=== PATIENT | male | born 1935 | race Caucasian/White ===

== ENCOUNTER 2017-06-14 13:10 | Inpatient (IN) | payer MEDICARE, OTHER ==
[~2017-06-14] VITALS: Ht 175.3 cm; Wt 83.5 kg
[2017-06-14] MEDS ORDERED: IOHEXOL 350 MG/ML 100ML IJ ONE ×2 (13:47→15:30)
[2017-06-14] MEDS ORDERED: LIDOCAINE 2%HCL (LOCAL ANESTH.) INJ 20ML MDV ONE ×3 (13:48→15:50)
[2017-06-14] MEDS ORDERED: HEPARIN IN NS 1000Units/500mL 0 ML ONE (13:48)
[2017-06-14 13:57] LABS: Hematocrit 46.6 % (41.0-53.0); Hemoglobin 15.8 g/dL (13.5-17.5); Mean Corpuscular Hemoglobin 31.8 pg (28.0-32.0); Mean Corpuscular Hgb Conc. 33.8 g/dL (32.0-36.0); Mean Corpuscular Volume 94.2 fL (80.0-100.0); Platelet Count (auto) 197 10^3/uL (140-450); Red Blood Cells 4.95 10^6/uL (4.5-5.90); Red Cell Distribution Width 13.7 % (11.8-14.3)
[2017-06-14 14:00] LABS: Urine Bacteria NONE SEEN /hpf (None Seen); Urine Blood Negative /uL (Negative); Urine Specific Gravity 1.022 (1.001-1.035); Urine WBC 1 /hpf (0 - 3)
[2017-06-14 14:03] LABS: Band Neutrophils % (manual) 0; Basophils % (manual) 0 (0.0-2.0); Eosinophils % (manual) 0 (0-7); Metamyelocytes % 0; Myelocytes % 0
[2017-06-14 14:04] LABS: Blast Cells 0; Promyelocytes % 0; Reactive Lymphocytes 0
[2017-06-14 14:10] LABS: INR 1.18 (0.9-1.15); Partial Thromboplastin Time 46.9 sec (22.64-33.71); Prothrombin Time 12.9 sec (9.37-12.3)
[2017-06-14 14:28] LABS: Albumin 3.4 g/dL (3.4-5.0); BUN/Creatinine Ratio 12.9; Calcium 8.5 mg/dL (8.5-10.1); Magnesium 2.3 mg/dL (1.6-2.6); Potassium 4.3 mmol/L (3.5-5.1); Total Protein 7.4 g/dL (6.4-8.2)
[2017-06-14] MEDS ORDERED: MORPHINE SULFATE 4 MG/ML SYR/VIAL IV PRN ×2 (15:15→17:00)
[2017-06-14] MEDS ORDERED: fentaNYL CITRATE 100 MCG/2 ML VL ONE (15:27)
[2017-06-14] MEDS ORDERED: ANGIOMAX 250 MG VIAL IV ONE ×2 (15:27→16:12)
[2017-06-14] MEDS ORDERED: MIDAZOLAM HCL 1MG/1ML-2 ML VIAL ONE (15:28)
[2017-06-14] MEDS ORDERED: SODIUM CHL 0.9% 50 ML ONE ×2 (15:28→16:12)
[2017-06-14 15:29] LABS: Lymphocytes % (manual) 6 (10.0-50.0); Monocytes % (manual) 4 (0-12)
[2017-06-14] MEDS ORDERED: HEPARIN DRIP/D5W 100UNITS/ML 250 ML IV SCH (16:49)
[2017-06-14] MEDS ORDERED: ONDANSETRON HCL 4 MG/2 ML VIAL IV PRN (17:00)
[2017-06-14] MEDS ORDERED: NITROGLYCERIN 0.4 MG SL TAB SL PRN (17:00)
[2017-06-14] MEDS ORDERED: HYDROcodone-ACET 10/325MG TAB ONE (17:21)
[2017-06-14] MEDS ORDERED: CYA100I IM (18:22)
[2017-06-14] MEDS ORDERED: FERR18TA2 PO (18:22)
[2017-06-14] MEDS ORDERED: HYDR-531 PO (18:22)
[2017-06-14] MEDS ORDERED: VITA400C49 PO (18:22)
[2017-06-14 19:50] VITALS: BP 111/62
[2017-06-14] MEDS ORDERED: CLOPIDOGREL 300 MG TAB PO ONE (21:00)
[2017-06-14] MEDS ORDERED: METOPROLOL TARTRATE 25 MG TAB PO SCH (22:00)
[2017-06-14] MEDS: FAMOTIDINE (10MG/ML) 2ML VL IV SCH (22:08)
[2017-06-14] MEDS: ALPRAZolam 0.25 MG TAB PO PRN (22:09)
[2017-06-14] MEDS: ATORVASTATIN 20 MG TAB PO SCH (22:09)
[2017-06-14] MEDS: METOPROLOL TARTRATE 25 MG TAB PO SCH (22:09)
[2017-06-14] MEDS: HYDROcodone-ACET 10/325MG TAB PO PRN (23:19)
[2017-06-14 23:51] VITALS: BP 97/58
[2017-06-15] VITALS (15 sets, daily range): BP systolic 85–108; BP diastolic 36–69
[2017-06-15 05:37] LABS: Basophils # (auto) 0 uL; Basophils % (auto) 0.2 % (0.0-2.0); Eosinophils # (auto) 0 uL; Eosinophils % (auto) 0.1 % (0.0-7.0); Hematocrit 42.8 % (41.0-53.0); Hemoglobin 14.6 g/dL (13.5-17.5); Lymphocytes # (auto) 0.8 uL; Lymphocytes % (auto) 6.1 % (10.0-50.0); Mean Corpuscular Hemoglobin 31.7 pg (28.0-32.0); Mean Corpuscular Hgb Conc. 34.1 g/dL (32.0-36.0); Mean Corpuscular Volume 92.7 fL (80.0-100.0); Monocytes # (auto) 1.3 uL; Monocytes % (auto) 9.4 % (0.0-12.0); Neutrophils # (auto) 11.4 uL; Neutrophils % (auto) 84.2 % (37.0-80.0); Nucleated Red Blood Cells % 0.6 %; Platelet Count (auto) 162 10^3/uL (140-450); Red Blood Cells 4.61 10^6/uL (4.5-5.90); Red Cell Distribution Width 13.4 % (11.8-14.3); White Blood Cell 13.6 10^3/uL (4.4-10.8)
[2017-06-15 05:38] LABS: INR 1.3 (0.9-1.15); Partial Thromboplastin Time 54.8 sec (22.64-33.71); Prothrombin Time 14.2 sec (9.37-12.3)
[2017-06-15 06:06] LABS: BUN/Creatinine Ratio 19.5; Calcium 8.4 mg/dL (8.5-10.1)
[2017-06-15] MEDS: FAMOTIDINE (10MG/ML) 2ML VL IV SCH (09:16)
[2017-06-15] MEDS: METOPROLOL TARTRATE 25 MG TAB PO SCH ×2 (09:16→22:00)
[2017-06-15] MEDS: CLOPIDOGREL BISULFATE 75 MG TAB PO SCH (09:16)
[2017-06-15] MEDS: LISINOPRIL 5 MG TAB PO SCH (09:17)
[2017-06-15] MEDS: HYDROcodone-ACET 10/325MG TAB PO PRN ×2 (09:17→22:44)
[2017-06-15] MEDS: ASPirin-EC 81 mg tab PO SCH (09:20)
[2017-06-15] MEDS: MORPHINE SULFATE 4 MG/ML SYR/VIAL IV PRN (12:53)
[2017-06-15] MEDS ORDERED: DIGOXIN (250MCG/ML) 2 ML AMPULE IV ONE ×2 (16:15→18:30)
[2017-06-15] MEDS ORDERED: AMIODARONE HCL 150 MG in D5W 5% 100 ML IV ONE (18:30)
[2017-06-15] MEDS ORDERED: AMIODARONE HCL 900 MG IV ONE (20:58)
[2017-06-15] MEDS ORDERED: AMIODARONE HCL (50 MG/ ML) 3 ML VIAL IV ONE (20:59)
[2017-06-15] MEDS: ATORVASTATIN 20 MG TAB PO SCH (22:44)
[2017-06-16] VITALS (30 sets, daily range): BP systolic 80–147; BP diastolic 32–74
[2017-06-16] MEDS ORDERED: AMIODARONE HCL 900 MG in DEXTROSE 500 ML IV SCH (00:29)
[2017-06-16] MEDS: ASPirin-EC 81 mg tab PO SCH (11:26)
[2017-06-16] MEDS: METOPROLOL TARTRATE 25 MG TAB PO SCH ×2 (11:39→22:04)
[2017-06-16] MEDS: LISINOPRIL 5 MG TAB PO SCH (11:40)
[2017-06-16] MEDS: DIGOXIN (250MCG/ML) 2 ML AMPULE IV SCH (11:42)
[2017-06-16] MEDS: CLOPIDOGREL BISULFATE 75 MG TAB PO SCH (11:42)
[2017-06-16] MEDS: HYDROcodone-ACET 10/325MG TAB PO PRN ×2 (11:42→20:05)
[2017-06-16] MEDS: MORPHINE SULFATE 4 MG/ML SYR/VIAL IV PRN (14:09)
[2017-06-16] MEDS: BUDESONIDE (INHALATION) 0.5 MG/2 ML NEB NEB SCH (18:19)
[2017-06-16] MEDS: IPRATROPIUM BROM 0.5 MG/2.5ML INH SOL NEB SCH ×2 (18:19→22:24)
[2017-06-16] MEDS ORDERED: AMIODARONE HCL 200 MG TAB PO ONE (20:00)
[2017-06-16] MEDS: ATORVASTATIN 20 MG TAB PO SCH (22:04)
[2017-06-17] VITALS: BP 101/68
[2017-06-17] MEDS: IPRATROPIUM BROM 0.5 MG/2.5ML INH SOL NEB SCH ×6 (02:36→22:38)
[2017-06-17 04:00] VITALS: BP 125/65
[2017-06-17] MEDS: BUDESONIDE (INHALATION) 0.5 MG/2 ML NEB NEB SCH ×2 (05:57→18:28)
[2017-06-17 06:01] LABS: Basophils # (auto) 0 uL; Basophils % (auto) 0.2 % (0.0-2.0); Eosinophils # (auto) 0 uL; Eosinophils % (auto) 0.4 % (0.0-7.0); Hematocrit 41.2 % (41.0-53.0); Hemoglobin 14.2 g/dL (13.5-17.5); Lymphocytes # (auto) 0.5 uL; Lymphocytes % (auto) 5.2 % (10.0-50.0); Mean Corpuscular Hemoglobin 31.9 pg (28.0-32.0); Mean Corpuscular Hgb Conc. 34.5 g/dL (32.0-36.0); Mean Corpuscular Volume 92.6 fL (80.0-100.0); Monocytes % (auto) 10.7 % (0.0-12.0); Neutrophils # (auto) 7.9 uL; Neutrophils % (auto) 83.5 % (37.0-80.0); Platelet Count (auto) 205 10^3/uL (140-450); Red Blood Cells 4.45 10^6/uL (4.5-5.90); Red Cell Distribution Width 13.3 % (11.8-14.3); White Blood Cell 9.5 10^3/uL (4.4-10.8)
[2017-06-17 06:36] LABS: Albumin 2.8 g/dL (3.4-5.0); BUN/Creatinine Ratio 27.6; Bilirubin, Total 1.4 mg/dL (0.2-1.0); Calcium 8.5 mg/dL (8.5-10.1); Potassium 4.3 mmol/L (3.5-5.1); Total Protein 7.1 g/dL (6.4-8.2)
[2017-06-17] MEDS: cefTRIAXone 1GM/10ml IVPUSH 10 ML IV SCH (08:33)
[2017-06-17] MEDS: DIGOXIN (250MCG/ML) 2 ML AMPULE IV SCH (09:03)
[2017-06-17] MEDS: AMIODARONE HCL 200 MG TAB PO SCH ×2 (09:03→22:20)
[2017-06-17] MEDS: CLOPIDOGREL BISULFATE 75 MG TAB PO SCH (09:04)
[2017-06-17] MEDS: HYDROcodone-ACET 10/325MG TAB PO PRN ×2 (09:04→19:44)
[2017-06-17] MEDS: LISINOPRIL 5 MG TAB PO SCH (09:04)
[2017-06-17] MEDS: ASPirin-EC 81 mg tab PO SCH (09:05)
[2017-06-17] MEDS: METOPROLOL TARTRATE 25 MG TAB PO SCH ×2 (09:05→22:00)
[2017-06-17 22:00] VITALS: BP 92/65
[2017-06-17] MEDS: ATORVASTATIN 20 MG TAB PO SCH (22:21)
[2017-06-17] MEDS: ALPRAZolam 0.25 MG TAB PO PRN (23:02)
[2017-06-18] MEDS: IPRATROPIUM BROM 0.5 MG/2.5ML INH SOL NEB SCH ×4 (02:38→14:41)
[2017-06-18 06:00] VITALS: BP 111/68
[2017-06-18] MEDS: BUDESONIDE (INHALATION) 0.5 MG/2 ML NEB NEB SCH (06:27)
[2017-06-18 06:45] LABS: Basophils # (auto) 0 uL; Basophils % (auto) 0.1 % (0.0-2.0); Eosinophils # (auto) 0.1 uL; Eosinophils % (auto) 0.8 % (0.0-7.0); Hematocrit 39.7 % (41.0-53.0); Hemoglobin 13.9 g/dL (13.5-17.5); Lymphocytes # (auto) 0.5 uL; Lymphocytes % (auto) 5.9 % (10.0-50.0); Mean Corpuscular Hemoglobin 32.4 pg (28.0-32.0); Mean Corpuscular Hgb Conc. 35.1 g/dL (32.0-36.0); Mean Corpuscular Volume 92.4 fL (80.0-100.0); Monocytes # (auto) 0.9 uL; Monocytes % (auto) 10.2 % (0.0-12.0); Neutrophils # (auto) 7.4 uL; Nucleated Red Blood Cells % 0.1 %; Platelet Count (auto) 215 10^3/uL (140-450); Red Cell Distribution Width 13.3 % (11.8-14.3); White Blood Cell 8.9 10^3/uL (4.4-10.8)
[2017-06-18 07:17] LABS: Albumin 2.7 g/dL (3.4-5.0); BUN/Creatinine Ratio 28.6; Bilirubin, Total 1.5 mg/dL (0.2-1.0); Calcium 8.5 mg/dL (8.5-10.1); Potassium 4.1 mmol/L (3.5-5.1)
[2017-06-18] MEDS: HYDROcodone-ACET 10/325MG TAB PO PRN (08:53)
[2017-06-18 09:22] VITALS: BP 94/60
[2017-06-18 10:00] VITALS: BP 86/57
[2017-06-18] MEDS: LISINOPRIL 5 MG TAB PO SCH (10:00)
[2017-06-18] MEDS: ASPirin-EC 81 mg tab PO SCH (10:00)
[2017-06-18] MEDS: METOPROLOL TARTRATE 25 MG TAB PO SCH (10:00)
[2017-06-18 10:02] VITALS: BP 106/62
[2017-06-18] MEDS: cefTRIAXone 1GM/10ml IVPUSH 10 ML IV SCH (10:15)
[2017-06-18] MEDS: DIGOXIN (250MCG/ML) 2 ML AMPULE IV SCH (10:16)
[2017-06-18] MEDS: AMIODARONE HCL 200 MG TAB PO SCH (10:17)
[2017-06-18] MEDS: CLOPIDOGREL BISULFATE 75 MG TAB PO SCH (10:17)
[2017-06-18 12:30] VITALS: BP 105/66
[2017-06-18 15:09] VITALS: BP 105/66
== END 2017-06-18 16:50 | disposition home or self-care (01) | DRG 280 ==
LOC: ER 13:10 → EDBD 13:10 → CATH 13:11 → ICU CENTRL 13:12 → DOU IN ICU 18:19 → TELE-WESTW 06-15 13:53 → DOU IN ICU 06-15 21:16 → TELE-WESTW 06-17 11:39
PROVIDERS: ADMIT Specialist; ATTEND Internal Medicine
PROC: 4A023N7 Measurement of Cardiac Sampling and Pressure, Left Heart, Percutaneous Approach (ICD-10-PCS; principal; 2017-06-14)
PROC: B2151ZZ Fluoroscopy of Left Heart using Low Osmolar Contrast (ICD-10-PCS; 2017-06-14)
PROC: B2111ZZ Fluoroscopy of Multiple Coronary Arteries using Low Osmolar Contrast (ICD-10-PCS; 2017-06-14)
PROC: B41F1ZZ Fluoroscopy of Right Lower Extremity Arteries using Low Osmolar Contrast (ICD-10-PCS; 2017-06-14)
DX: I21.09 ST elevation (STEMI) myocardial infarction involving other coronary artery of anterior wall (principal); J18.1 Lobar pneumonia, unspecified organism; E44.1 Mild protein-calorie malnutrition; I48.91 Unspecified atrial fibrillation; J44.0 Chronic obstructive pulmonary disease with (acute) lower respiratory infection; J20.9 Acute bronchitis, unspecified; F17.210 Nicotine dependence, cigarettes, uncomplicated; I10 Essential (primary) hypertension; G89.29 Other chronic pain; M54.9 Dorsalgia, unspecified; I25.10 Atherosclerotic heart disease of native coronary artery without angina pectoris; M19.90 Unspecified osteoarthritis, unspecified site; M48.00 Spinal stenosis, site unspecified; I25.5 Ischemic cardiomyopathy; Z68.27 Body mass index [BMI] 27.0-27.9, adult; Z88.6 Allergy status to analgesic agent; Z90.49 Acquired absence of other specified parts of digestive tract
CPT/HCPCS: 93458; 96361; 96374; 96375; 99285; G0278; 36415; 71045; 80048; 80053; 81001; 83735; 84484; 85007; 85025; 85027; 85610; 85730; 86850; 86900; 86901; 87081; 93005; 93306; 94640; 94761; 97163; 99152; J2250; J3490; J7060

== ENCOUNTER 2017-09-11 20:47 | Inpatient (IN) | payer OTHER ==
[~2017-09-11] VITALS: Ht 175.3 cm; Wt 80.9 kg
[~2017-09-11 20:47] MED LIST: CYA100I IM; FERR18TA2 PO; HYDR-531 PO; VITA400C49 PO
[2017-09-11 22:43] LABS: Basophils # (auto) 0 uL; Basophils % (auto) 0.3 % (0.0-2.0); Eosinophils # (auto) 0.1 uL; Eosinophils % (auto) 1.2 % (0.0-7.0); Hemoglobin 13.1 g/dL (13.5-17.5); Lymphocytes # (auto) 0.6 uL; Lymphocytes % (auto) 10.2 % (10.0-50.0); Mean Corpuscular Hemoglobin 29.8 pg (28.0-32.0); Mean Corpuscular Hgb Conc. 32.7 g/dL (32.0-36.0); Mean Corpuscular Volume 91.1 fL (80.0-100.0); Monocytes # (auto) 0.6 uL; Monocytes % (auto) 10.1 % (0.0-12.0); Neutrophils % (auto) 78.2 % (37.0-80.0); Platelet Count (auto) 208 10^3/uL (140-450); Red Blood Cells 4.39 10^6/uL (4.5-5.90); Red Cell Distribution Width 14.2 % (11.8-14.3); White Blood Cell 6.4 10^3/uL (4.4-10.8)
[2017-09-11 22:47] LABS: Albumin 3.5 g/dL (3.4-5.0); BUN/Creatinine Ratio 13.3; Bilirubin, Total 0.7 mg/dL (0.2-1.0); Calcium 8.4 mg/dL (8.5-10.1); Magnesium 2.4 mg/dL (1.6-2.6); Potassium 4.4 mmol/L (3.5-5.1); Total Protein 7.2 g/dL (6.4-8.2)
[2017-09-11 22:56] LABS: INR 1.24 (0.9-1.15); Partial Thromboplastin Time 44.6 sec (22.64-33.71); Prothrombin Time 13.6 sec (9.37-12.3)
[2017-09-12] MEDS ORDERED: FUROSEMIDE 20 MG/2 ML VIAL IV ONE
[2017-09-12] MEDS ORDERED: DOCUSATE SOD 100 MG CAP PO PRN (05:00)
[2017-09-12] MEDS ORDERED: TEMAZEPAM 15 MG CAP PO PRN (05:00)
[2017-09-12] MEDS ORDERED: MORPHINE SULFATE 4 MG/ML SYR/VIAL IV PRN (05:00)
[2017-09-12] MEDS ORDERED: NITROGLYCERIN 0.4 MG SL TAB SL PRN (05:00)
[2017-09-12] MEDS ORDERED: ONDANSETRON HCL 4 MG/2 ML VIAL IV PRN (05:00)
[2017-09-12] MEDS ORDERED: ALBUTEROL SULF 2.5 MG/0.5ML(0.5%) NEB SOLN NEB PRN (05:00)
[2017-09-12] MEDS ORDERED: HYDROcodone-ACET 5/325MG TAB PO PRN (05:00)
[2017-09-12] MEDS ORDERED: ACETAMINOPHEN 325 MG TAB PO PRN (05:00)
[2017-09-12] MEDS ORDERED: IOHEXOL 350 MG/ML 100ML IJ ONE ×2 (05:59→10:50)
[2017-09-12 06:00] VITALS: BP 151/94
[2017-09-12] MEDS ORDERED: LEVOFLOXACIN 500MG 100 ML IV ONE (06:00)
[2017-09-12] MEDS ORDERED: FUROSEMIDE 20 MG TAB PO SCH (06:00)
[2017-09-12] MEDS ORDERED: ENOXAPARIN SOD 100 MG/1 ML SYRINGE SC ONE (06:15)
[2017-09-12] MEDS ORDERED: ALPR0.5T PO (07:49)
[2017-09-12 07:55] LABS: INR 1.25 (0.9-1.15); Partial Thromboplastin Time 44.9 sec (22.64-33.71); Prothrombin Time 13.7 sec (9.37-12.3)
[2017-09-12 08:18] LABS: Albumin 3.2 g/dL (3.4-5.0); BUN/Creatinine Ratio 12.3; Calcium 8.3 mg/dL (8.5-10.1); Potassium 3.9 mmol/L (3.5-5.1)
[2017-09-12 08:21] LABS: Bilirubin, Total 0.8 mg/dL (0.2-1.0); Total Protein 6.7 g/dL (6.4-8.2)
[2017-09-12 09:00] VITALS: BP 140/85
[2017-09-12 09:05] VITALS: BP 140/85
[2017-09-12] MEDS: AMIODARONE HCL 200 MG TAB PO SCH ×2 (09:54→21:19)
[2017-09-12] MEDS: LISINOPRIL 10 MG TAB PO SCH (09:54)
[2017-09-12] MEDS: CLOPIDOGREL BISULFATE 75 MG TAB PO SCH (09:54)
[2017-09-12] MEDS ORDERED: DIGOXIN 0.125 MG TAB PO SCH (10:00)
[2017-09-12] MEDS ORDERED: POTASSIUM CHL 20 Meq TABLET PO SCH (10:00)
[2017-09-12] MEDS ORDERED: FUROSEMIDE 100 MG/10ML VIAL IV SCH (10:00)
[2017-09-12] MEDS ORDERED: CARVEDILOL 3.125 MG TAB PO SCH (10:00)
[2017-09-12] MEDS ORDERED: ENOXAPARIN SOD 40 MG/0.4 ML SYRINGE SC SCH ×2 (10:00→12:15)
[2017-09-12] MEDS ORDERED: FUROSEMIDE 100 MG/10ML VIAL IV ONE (10:15)
[2017-09-12] MEDS: CARVEDILOL 3.125 MG TAB PO SCH ×2 (12:16→21:20)
[2017-09-12] MEDS: FAMOTIDINE 20 MG TAB PO SCH ×2 (12:17→21:18)
[2017-09-12 13:00] VITALS: BP 156/79
[2017-09-12 17:00] VITALS: BP 127/81
[2017-09-12] MEDS ORDERED: WARFARIN SODIUM 5 MG TAB PO ONE (17:00)
[2017-09-12] MEDS ORDERED: MORPHINE SULFATE 8mg/ml INJ SDV IV PRN (17:45)
[2017-09-12] MEDS: FUROSEMIDE 100 MG/10ML VIAL IV SCH (18:07)
[2017-09-12] MEDS: RIVAROXABAN 15 MG TAB PO SCH (21:18)
[2017-09-12 21:36] VITALS: BP 107/73
[2017-09-12] MEDS ORDERED: ATORVASTATIN 20 MG TAB PO SCH (22:00)
[2017-09-12] MEDS ORDERED: PRAVASTATIN SODIUM 20 MG TAB PO SCH (22:00)
[2017-09-12] MEDS ORDERED: PATIENTS OWN MEDICATION PO SCH (22:00)
[2017-09-13 05:00] VITALS: BP 137/95
[2017-09-13] MEDS: FUROSEMIDE 100 MG/10ML VIAL IV SCH (05:31)
[2017-09-13 05:33] LABS: Basophils # (auto) 0 uL; Basophils % (auto) 0.4 % (0.0-2.0); Eosinophils # (auto) 0.1 uL; Eosinophils % (auto) 1.8 % (0.0-7.0); Hematocrit 40.3 % (41.0-53.0); Hemoglobin 13.6 g/dL (13.5-17.5); Lymphocytes # (auto) 0.8 uL; Lymphocytes % (auto) 13.2 % (10.0-50.0); Mean Corpuscular Hemoglobin 30.5 pg (28.0-32.0); Mean Corpuscular Hgb Conc. 33.8 g/dL (32.0-36.0); Mean Corpuscular Volume 90.2 fL (80.0-100.0); Monocytes # (auto) 0.8 uL; Neutrophils # (auto) 4.2 uL; Neutrophils % (auto) 71.6 % (37.0-80.0); Nucleated Red Blood Cells % 0.1 %; Platelet Count (auto) 189 10^3/uL (140-450); Red Blood Cells 4.47 10^6/uL (4.5-5.90); White Blood Cell 5.8 10^3/uL (4.4-10.8)
[2017-09-13 05:59] LABS: Albumin 3.5 g/dL (3.4-5.0); BUN/Creatinine Ratio 9.6; Bilirubin, Total 1.2 mg/dL (0.2-1.0); Calcium 8.9 mg/dL (8.5-10.1); Potassium 3.5 mmol/L (3.5-5.1)
[2017-09-13 09:00] VITALS: BP 118/73
[2017-09-13] MEDS: RIVAROXABAN 15 MG TAB PO SCH (09:31)
[2017-09-13] MEDS: FAMOTIDINE 20 MG TAB PO SCH (09:31)
[2017-09-13] MEDS: AMIODARONE HCL 200 MG TAB PO SCH (09:31)
[2017-09-13] MEDS: CLOPIDOGREL BISULFATE 75 MG TAB PO SCH (09:32)
[2017-09-13] MEDS: LISINOPRIL 10 MG TAB PO SCH (09:32)
[2017-09-13] MEDS: CARVEDILOL 3.125 MG TAB PO SCH (09:32)
[2017-09-13] MEDS ORDERED: LEVOFLOXACIN 500MG 100 ML IV SCH (10:00)
[2017-09-13] MEDS ORDERED: POTASSIUM CHL 20 Meq TABLET PO ONE (11:30)
[2017-09-13] MEDS ORDERED: ALBUTEROL SULF 2.5 MG/0.5ML(0.5%) NEB SOLN NEB PRN (11:30)
[2017-09-13 13:30] VITALS: BP 118/71
[2017-09-13 16:18] VITALS: BP 118/71
[2017-09-13 16:37] VITALS: BP 113/72
[2017-09-13] MEDS ORDERED: FUROSEMIDE 40 MG TAB PO SCH (18:00)
== END 2017-09-13 17:00 | disposition home or self-care (01) | DRG 291 ==
LOC: ER 20:47 → TELE 20:48 → TELE-WESTW 09-12 06:01
PROVIDERS: ADMIT Nurse Practitioner; ATTEND Internal Medicine
DX: I11.0 Hypertensive heart disease with heart failure (principal); I26.99 Other pulmonary embolism without acute cor pulmonale; D68.9 Coagulation defect, unspecified; I27.20 Pulmonary hypertension, unspecified; J43.9 Emphysema, unspecified; Z99.81 Dependence on supplemental oxygen; I24.8 Other forms of acute ischemic heart disease; I50.23 Acute on chronic systolic (congestive) heart failure; I48.0 Paroxysmal atrial fibrillation; I50.82 Biventricular heart failure; I25.10 Atherosclerotic heart disease of native coronary artery without angina pectoris; F17.210 Nicotine dependence, cigarettes, uncomplicated; I08.0 Rheumatic disorders of both mitral and aortic valves; M19.90 Unspecified osteoarthritis, unspecified site; G89.29 Other chronic pain; M54.9 Dorsalgia, unspecified; Z88.6 Allergy status to analgesic agent; I25.5 Ischemic cardiomyopathy; I25.2 Old myocardial infarction; Z79.01 Long term (current) use of anticoagulants; Z90.49 Acquired absence of other specified parts of digestive tract; Z79.899 Other long term (current) drug therapy
CPT/HCPCS: 36415; 71045; 71275; 80053; 83735; 83880; 84443; 84484; 85025; 85379; 85610; 85730; 93005; 93970; 94640; 96365; 96375; J1956

== ENCOUNTER 2017-09-26 12:04 | Inpatient (IN) | payer OTHER ==
[~2017-09-26] VITALS: Ht 175.3 cm; Wt 80.3 kg
[~2017-09-26 12:04] MED LIST changes: +ALPR0.5T PO
[2017-09-26] MEDS ORDERED: SODIUM CHLORIDE 0.9% 1,000 ML IV ONE (12:21)
[2017-09-26] MEDS ORDERED: IOHEXOL 300 MG/ML 100ML BOTTLE IJ ONE (12:24)
[2017-09-26] MEDS ORDERED: PANTOPRAZOLE 40 MG/10 ML VIAL IV ONE (12:30)
[2017-09-26 13:32] LABS: Basophils # (auto) 0 uL; Basophils % (auto) 0.2 % (0.0-2.0); Eosinophils # (auto) 0 uL; Eosinophils % (auto) 0.2 % (0.0-7.0); Hematocrit 31.1 % (41.0-53.0); Hemoglobin 10.1 g/dL (13.5-17.5); Lymphocytes # (auto) 0.7 uL; Lymphocytes % (auto) 4.2 % (10.0-50.0); Mean Corpuscular Hemoglobin 29.6 pg (28.0-32.0); Mean Corpuscular Hgb Conc. 32.6 g/dL (32.0-36.0); Mean Corpuscular Volume 90.7 fL (80.0-100.0); Monocytes # (auto) 0.8 uL; Monocytes % (auto) 4.9 % (0.0-12.0); Neutrophils # (auto) 15.1 uL; Neutrophils % (auto) 90.5 % (37.0-80.0); Nucleated Red Blood Cells % 0.1 %; Platelet Count (auto) 233 10^3/uL (140-450); Red Blood Cells 3.42 10^6/uL (4.5-5.90); Red Cell Distribution Width 14.1 % (11.8-14.3); White Blood Cell 16.6 10^3/uL (4.4-10.8)
[2017-09-26 13:47] LABS: Albumin 3.6 g/dL (3.4-5.0); BUN/Creatinine Ratio 19.7; Bilirubin, Total 1.1 mg/dL (0.2-1.0); Calcium 8.4 mg/dL (8.5-10.1); Potassium 4.3 mmol/L (3.5-5.1)
[2017-09-26 13:56] LABS: INR 2.31 (0.9-1.15); Prothrombin Time 23.6 sec (9.27-12.13)
[2017-09-26 14:02] LABS: Partial Thromboplastin Time 78.7 sec (23.78-33.04)
[2017-09-26 14:15] LABS: Urine Bacteria NONE SEEN /hpf (None Seen); Urine Blood Negative /uL (Negative); Urine Specific Gravity 1.011 (1.001-1.035); Urine WBC <1 /hpf (0 - 3)
[2017-09-26] MEDS ORDERED: metroNIDAZOLE 500MG/100ML 100 ML IV ONE (15:00)
[2017-09-26] MEDS ORDERED: PIPERACILLIN-TAZOB 3.375GM 100 ML IV ONE (15:00)
[2017-09-26] MEDS: PANTOPRAZOLE 40 MG/10 ML VIAL IV ONE ×2 (15:15→15:46)
[2017-09-26] MEDS ORDERED: cefTRIAXone 1GM/10ml IVPUSH 10 ML IV ONE (15:15)
[2017-09-26] MEDS ORDERED: MORPHINE SULFATE 10 MG/ML INJ 1ML SDV IV PRN ×2 (15:15)
[2017-09-26] MEDS ORDERED: LACTULOSE 20Gm/30ML SOLN PO PRN (15:15)
[2017-09-26] MEDS ORDERED: NITROGLYCERIN 0.4 MG SL TAB SL PRN (15:15)
[2017-09-26] MEDS ORDERED: PHYTONADIONE ORAL Susp 10 mg/10ml PO ONE ×2 (15:15)
[2017-09-26] MEDS ORDERED: LORazepam 0.5 MG TAB PO PRN (15:15)
[2017-09-26] MEDS ORDERED: TEMAZEPAM 15 MG CAP PO PRN (15:15)
[2017-09-26] MEDS ORDERED: metroNIDAZOLE 500MG/100ML 100 ML IV SCH (15:30)
[2017-09-26] MEDS: SODIUM CHLORIDE 0.9% 1,000 ML IV SCH ×2 (15:47→23:27)
[2017-09-26] MEDS: PROMETHAZINE HCL 25 MG/ML 1ML IV PRN (15:47)
[2017-09-26] MEDS: MORPHINE SULFATE 10 MG/ML INJ 1ML SDV IV PRN ×2 (15:47→20:09)
[2017-09-26 17:38] VITALS: BP 104/66
[2017-09-26 18:00] VITALS: BP 112/66
[2017-09-26 18:06] LABS: Hematocrit 28.6 % (41.0-53.0); Hemoglobin 9.4 g/dL (13.5-17.5)
[2017-09-26 19:30] VITALS: BP 119/78
[2017-09-26 20:14] LABS: INR 1.99 (0.9-1.15); Partial Thromboplastin Time 69.5 sec (23.78-33.04); Prothrombin Time 20.5 sec (9.27-12.13)
[2017-09-26] MEDS: metroNIDAZOLE 500MG/100ML 100 ML IV SCH (21:30)
[2017-09-26] MEDS: PANTOPRAZOLE 40 MG/10 ML VIAL IV SCH (22:00)
[2017-09-27 00:37] LABS: Hematocrit 23.1 % (41.0-53.0)
[2017-09-27 00:39] LABS: Hemoglobin 7.8 g/dL (13.5-17.5)
[2017-09-27 01:08] LABS: INR 1.68 (0.9-1.15); Partial Thromboplastin Time 60.9 sec (23.78-33.04); Prothrombin Time 17.5 sec (9.27-12.13)
[2017-09-27] MEDS ORDERED: SODIUM CHLORIDE 0.9% 1,000 ML IV SCH (04:45)
[2017-09-27] MEDS: metroNIDAZOLE 500MG/100ML 100 ML IV SCH (05:37)
[2017-09-27 06:37] LABS: Basophils # (auto) 0 uL; Basophils % (auto) 0.3 % (0.0-2.0); Eosinophils # (auto) 0.2 uL; Eosinophils % (auto) 2.2 % (0.0-7.0); Hematocrit 25.4 % (41.0-53.0); Lymphocytes % (auto) 14.4 % (10.0-50.0); Mean Corpuscular Hemoglobin 32.2 pg (28.0-32.0); Mean Corpuscular Hgb Conc. 35.3 g/dL (32.0-36.0); Mean Corpuscular Volume 91.1 fL (80.0-100.0); Monocytes # (auto) 0.7 uL; Neutrophils # (auto) 5.3 uL; Neutrophils % (auto) 73.1 % (37.0-80.0); Platelet Count (auto) 159 10^3/uL (140-450); Red Blood Cells 2.79 10^6/uL (4.5-5.90); Red Cell Distribution Width 14.2 % (11.8-14.3); White Blood Cell 7.2 10^3/uL (4.4-10.8)
[2017-09-27 06:42] LABS: INR 1.51 (0.9-1.15); Partial Thromboplastin Time 55.9 sec (23.78-33.04); Prothrombin Time 15.8 sec (9.27-12.13)
[2017-09-27 06:57] LABS: Potassium 3.8 mmol/L (3.5-5.1)
[2017-09-27 06:58] LABS: BUN/Creatinine Ratio 19.8
[2017-09-27 06:59] LABS: Albumin 2.8 g/dL (3.4-5.0); Bilirubin, Total 0.5 mg/dL (0.2-1.0); Calcium 7.9 mg/dL (8.5-10.1); Total Protein 5.7 g/dL (6.4-8.2)
[2017-09-27] MEDS: MORPHINE SULFATE 10 MG/ML INJ 1ML SDV IV PRN ×2 (07:29→20:54)
[2017-09-27] MEDS: PROMETHAZINE HCL 25 MG/ML 1ML IV PRN (07:29)
[2017-09-27] MEDS ORDERED: cefTRIAXone 1GM/10ml IVPUSH 10 ML IV SCH (09:00)
[2017-09-27] MEDS ORDERED: PANTOPRAZOLE 40 MG/10 ML VIAL IV SCH (10:00)
[2017-09-27] MEDS: PANTOPRAZOLE 40 MG/10 ML VIAL IV SCH ×2 (10:37→21:41)
[2017-09-27 17:00] VITALS: BP 106/56
[2017-09-27 20:00] VITALS: BP 122/72
[2017-09-27] MEDS ORDERED: MORPHINE SULF INJ 2 MG/ML SYRINGE 1ML ONE (20:38)
[2017-09-27] MEDS: SENNA 8.6 MG TAB PO SCH (21:41)
[2017-09-27 21:44] VITALS: BP 122/72
[2017-09-28] VITALS (7 sets, daily range): BP systolic 102–121; BP diastolic 64–78
[2017-09-28] MEDS ORDERED: CLOP75TA28 PO (02:28)
[2017-09-28] MEDS ORDERED: LISI-711 PO (02:28)
[2017-09-28] MEDS ORDERED: RIV15T PO (02:28)
[2017-09-28] MEDS ORDERED: CAR3125T PO (02:28)
[2017-09-28] MEDS ORDERED: POTA10TA51 PO (02:28)
[2017-09-28] MEDS ORDERED: LOVA10TA2 PO (02:28)
[2017-09-28] MEDS ORDERED: FURO40TA PO (02:28)
[2017-09-28 05:47] LABS: Basophils # (auto) 0 uL; Basophils % (auto) 0.2 % (0.0-2.0); Eosinophils # (auto) 0.2 uL; Eosinophils % (auto) 2.6 % (0.0-7.0); Hematocrit 26.1 % (41.0-53.0); Lymphocytes # (auto) 0.9 uL; Lymphocytes % (auto) 13.8 % (10.0-50.0); Mean Corpuscular Hemoglobin 31.2 pg (28.0-32.0); Mean Corpuscular Hgb Conc. 34.3 g/dL (32.0-36.0); Mean Corpuscular Volume 90.9 fL (80.0-100.0); Monocytes # (auto) 0.6 uL; Neutrophils # (auto) 5.1 uL; Neutrophils % (auto) 74.4 % (37.0-80.0); Platelet Count (auto) 165 10^3/uL (140-450); Red Blood Cells 2.88 10^6/uL (4.5-5.90); White Blood Cell 6.8 10^3/uL (4.4-10.8)
[2017-09-28] MEDS: HYDROcodone-ACET 5/325MG TAB PO PRN ×2 (08:33→20:12)
[2017-09-28] MEDS: PANTOPRAZOLE 40 MG/10 ML VIAL IV SCH ×2 (10:25→21:52)
[2017-09-28] MEDS: SENNA 8.6 MG TAB PO SCH (21:52)
[2017-09-29 05:00] VITALS: BP 136/74
[2017-09-29] MEDS: HYDROcodone-ACET 5/325MG TAB PO PRN (06:39)
[2017-09-29 07:24] LABS: Hematocrit 26.3 % (41.0-53.0); Hemoglobin 8.9 g/dL (13.5-17.5)
[2017-09-29 07:26] LABS: INR 1.26 (0.9-1.15); Partial Thromboplastin Time 44.8 sec (23.78-33.04); Prothrombin Time 13.3 sec (9.27-12.13)
[2017-09-29 08:00] VITALS: BP 124/75
[2017-09-29 08:52] VITALS: BP 124/75
[2017-09-29] MEDS: PANTOPRAZOLE 40 MG/10 ML VIAL IV SCH (10:44)
[2017-09-29] MEDS ORDERED: IOHEXOL 350 MG/ML 100ML IJ ONE (11:53)
[2017-09-29] MEDS ORDERED: LIDOCAINE 2%HCL (LOCAL ANESTH.) INJ 20ML MDV ONE (11:53)
[2017-09-29] MEDS ORDERED: fentaNYL CITRATE 100 MCG/2 ML VL ONE (12:32)
[2017-09-29] MEDS ORDERED: MIDAZOLAM HCL 1MG/1ML-2 ML VIAL ONE (12:33)
[2017-09-29 13:17] VITALS: BP 106/67
[2017-09-29 17:04] VITALS: BP 102/58
[2017-09-29 19:07] LABS: % Iron Saturation 8.6 % (20-55)
[2017-09-29 19:19] LABS: Folate (Folic Acid) 6.17 ng/mL (5.38-24)
[2017-09-29 20:04] VITALS: BP 102/58
[2017-09-30] MEDS ORDERED: SODIUM FERR GLUC 62.5MG/5ML 125 MG in SODIUM CHL 0.9% 100 ML IV SCH (12:00)
== END 2017-09-29 21:15 | disposition home or self-care (01) | DRG 854 ==
LOC: ER 12:04 → OVERFLOW 12:05 → TELE-WESTW 09-27 13:04
PROVIDERS: ADMIT Internal Medicine; ATTEND Internal Medicine
PROC: 30233L1 Transfusion of Nonautologous Fresh Plasma into Peripheral Vein, Percutaneous Approach (ICD-10-PCS; 2017-09-26)
PROC: 30233K1 Transfusion of Nonautologous Frozen Plasma into Peripheral Vein, Percutaneous Approach (ICD-10-PCS; 2017-09-26)
PROC: B5191ZZ Fluoroscopy of Inferior Vena Cava using Low Osmolar Contrast (ICD-10-PCS; principal; 2017-09-29)
PROC: 06H03DZ Insertion of Intraluminal Device into Inferior Vena Cava, Percutaneous Approach (ICD-10-PCS; 2017-09-29)
DX: A41.9 Sepsis, unspecified organism (principal); K62.5 Hemorrhage of anus and rectum; I48.91 Unspecified atrial fibrillation; I50.9 Heart failure, unspecified; J43.9 Emphysema, unspecified; D50.0 Iron deficiency anemia secondary to blood loss (chronic); F17.210 Nicotine dependence, cigarettes, uncomplicated; I25.10 Atherosclerotic heart disease of native coronary artery without angina pectoris; N30.90 Cystitis, unspecified without hematuria; T45.515A Adverse effect of anticoagulants, initial encounter; M19.90 Unspecified osteoarthritis, unspecified site; G89.29 Other chronic pain; M54.9 Dorsalgia, unspecified; I70.0 Atherosclerosis of aorta; Z96.642 Presence of left artificial hip joint; Z88.6 Allergy status to analgesic agent; Z79.01 Long term (current) use of anticoagulants; Z86.711 Personal history of pulmonary embolism; I25.2 Old myocardial infarction; Z95.5 Presence of coronary angioplasty implant and graft; Z90.49 Acquired absence of other specified parts of digestive tract; Z80.9 Family history of malignant neoplasm, unspecified; Y92.89 Other specified places as the place of occurrence of the external cause
CPT/HCPCS: 36415; 36430; 37619; 71045; 74177; 76942; 80053; 81001; 82378; 82607; 82728; 82746; 83090; 83540; 83550; 83605; 83880; 84484; 85014; 85018; 85025; 85045; 85610; 85652; 85730; 86850; 86870; 86900; 86901; 87040; 87081; 93005; 93970; 96361; 96374; 96375; 97163; 99152; C9113; G0378; J2250; J2543; J3490

== ENCOUNTER 2020-03-26 17:45 | Inpatient (IN) | payer OTHER ==
[~2020-03-26] VITALS: Ht 175.3 cm; Wt 70.3 kg
[~2020-03-26 17:45] MED LIST changes: +CAR3125T PO; +CHOL400L8 PO; +CLOP75TA28 PO; -CYA100I IM; +CYA100I PO; -FERR18TA2 PO; +FOLI1TAB6 PO; +FURO1TAB31 PO; +LISI-711 PO; +LOVA10TA2 PO; +POTA10TA51 PO; +RANITAB8 PO; -VITA400C49 PO
[2020-03-26] MEDS ORDERED: SODIUM CHLORIDE 0.9% 500 ML IV ONE (23:15)
[2020-03-26 23:29] LABS: INR 1.17 (0.9-1.15); Partial Thromboplastin Time 61.8 sec (23.0-31.2)
[2020-03-26 23:33] LABS: Albumin 2.9 g/dL (3.4-5.0); BUN/Creatinine Ratio 26.7; Calcium 8.6 mg/dL (8.5-10.1); Magnesium 2.1 mg/dL (1.6-2.6); Potassium 4.5 mmol/L (3.5-5.1)
[2020-03-26 23:48] LABS: Basophils # (auto) 0 10 ^3/uL (0-0.2); Basophils % (auto) 0.1 % (0.0-2.0); Eosinophils # (auto) 0 10 ^3/uL (0-0.8); Hematocrit 40.2 % (41.0-53.0); Hemoglobin 13.5 g/dL (13.5-17.5); Lymphocytes # (auto) 0.7 10 ^3/uL (0.4-5.4); Lymphocytes % (auto) 8.3 % (10.0-50.0); Mean Corpuscular Hemoglobin 30.8 pg (28.0-32.0); Mean Corpuscular Hgb Conc. 33.6 g/dL (32.0-36.0); Mean Corpuscular Volume 91.8 fL (80.0-100.0); Monocytes # (auto) 0.5 10 ^3/uL (0-1.3); Neutrophils # (auto) 7.6 10 ^3/uL (1.6-8.6); Neutrophils % (auto) 85.6 % (37.0-80.0); Nucleated Red Blood Cells % 0.1 %; Platelet Count (auto) 95 10^3/uL (140-450); Red Blood Cells 4.39 10^6/uL (4.5-5.90); Red Cell Distribution Width 14.5 % (11.8-14.3); White Blood Cell 8.8 10^3/uL (4.4-10.8)
[2020-03-26 23:50] LABS: Bilirubin, Total 1.1 mg/dL (0.2-1.0); Total Protein 6.8 g/dL (6.4-8.2)
[2020-03-26 23:51] LABS: Lactic Acid w/Reflex 2.4 mmol/L (0.4-2.0)
[2020-03-27] MEDS ORDERED: IOHEXOL 350 MG/ML 100ML IJ ONE (00:59)
[2020-03-27] MEDS ORDERED: PIPERACILLIN-TAZOB 3.375GM 100 ML IV ONE (01:00)
[2020-03-27] MEDS ORDERED: SODIUM CHLORIDE 0.9% 500 ML IV ONE (01:00)
[2020-03-27] MEDS ORDERED: VANCOMYCIN 1GM/250ML 250 ML IV ONE ×2 (01:00→17:00)
[2020-03-27] MEDS ORDERED: SODIUM CHLORIDE 0.9% 1,000 ML IV ONE (02:15)
[2020-03-27] MEDS ORDERED: SODIUM CHLORIDE 0.9% 1,000 ML IV SCH (02:45)
[2020-03-27] MEDS ORDERED: DOCUSATE SOD 100 MG CAP PO PRN (02:45)
[2020-03-27] MEDS ORDERED: ONDANSETRON HCL 4 MG/2 ML VIAL IV PRN (02:45)
[2020-03-27] MEDS ORDERED: ACETAMINOPHEN 500 MG TAB PO PRN (02:45)
[2020-03-27] MEDS ORDERED: MORPHINE SULF INJ 2 MG/ML SYRINGE 1ML IV PRN (02:45)
[2020-03-27] MEDS ORDERED: NITROGLYCERIN 0.4 MG SL TAB SL PRN (02:45)
[2020-03-27] MEDS ORDERED: IPRATROPIUM BROM 0.5 MG/2.5ML INH SOL NEB PRN (03:00)
[2020-03-27] MEDS: ALBUTEROL SULF HFA 90MCG INH 200DOSE IN SCH ×3 (06:38→22:11)
--- NOTE | 2020-03-27 06:39 | NUR ---
RT NOTE: MDI HELD PENDING COVID-19 TEST RESULTS.
[2020-03-27] MEDS: NOREPINEPHRINE 8 MG/250ML KIT 250 ML IV SCH (08:21)
[2020-03-27] MEDS: ENOXAPARIN SOD 40 MG/0.4 ML SYRINGE SC SCH (09:53)
[2020-03-27] MEDS: ASCORBIC ACID 1,000 MG TAB PO SCH (09:53)
[2020-03-27] MEDS ORDERED: ZINC SULFATE 220mg CAP or TAB PO SCH (10:00)
[2020-03-27] MEDS ORDERED: DOXYCYCLINE 100 MG TAB/CAP PO SCH (10:00)
[2020-03-27] MEDS ORDERED: FAMO20TA10 PO (11:20)
[2020-03-27] MEDS ORDERED: ALB5IS NEB (11:21)
[2020-03-27] MEDS ORDERED: IPRA0.03 (11:22)
[2020-03-27 11:29] LABS: Basophils # (auto) 0 10 ^3/uL (0-0.2); Basophils % (auto) 0.1 % (0.0-2.0); Eosinophils # (auto) 0 10 ^3/uL (0-0.8); Hemoglobin 10.7 g/dL (13.5-17.5); Lymphocytes # (auto) 0.6 10 ^3/uL (0.4-5.4); Lymphocytes % (auto) 15.2 % (10.0-50.0); Mean Corpuscular Hemoglobin 30.7 pg (28.0-32.0); Mean Corpuscular Hgb Conc. 33.4 g/dL (32.0-36.0); Mean Corpuscular Volume 91.9 fL (80.0-100.0); Monocytes # (auto) 0.3 10 ^3/uL (0-1.3); Monocytes % (auto) 6.6 % (0.0-12.0); Neutrophils % (auto) 78.1 % (37.0-80.0); Platelet Count (auto) 72 10^3/uL (140-450); Red Blood Cells 3.48 10^6/uL (4.5-5.90); Red Cell Distribution Width 14.6 % (11.8-14.3); White Blood Cell 3.9 10^3/uL (4.4-10.8)
[2020-03-27] MEDS: SODIUM CHLORIDE 0.9% 1,000 ML IV SCH ×2 (12:00→22:00)
[2020-03-27] MEDS ORDERED: ALPRAZolam 0.5 MG TAB PO PRN (12:00)
[2020-03-27] MEDS ORDERED: VANCOMYCIN PER PHARMACY 0 MG IV SCH (12:00)
[2020-03-27 12:10] LABS: Albumin 2.2 g/dL (3.4-5.0); Calcium 7.4 mg/dL (8.5-10.1); Potassium 3.6 mmol/L (3.5-5.1)
[2020-03-27 12:15] LABS: BUN/Creatinine Ratio 32.3; Bilirubin, Total 0.6 mg/dL (0.2-1.0); Total Protein 5.2 g/dL (6.4-8.2)
[2020-03-27 12:56] VITALS: BP 93/56
[2020-03-27] MEDS: methylPREDNISolone SOD SUCC 40 MG/ML VL IV SCH ×2 (13:20→22:11)
[2020-03-27] MEDS: FOLIC ACID 1 MG TAB PO SCH (13:20)
[2020-03-27] MEDS: PANTOPRAZOLE 40 MG TAB PO SCH (13:20)
[2020-03-27] MEDS: MEROPENEM 1GM IVPB 100 ML IV SCH ×2 (14:10→22:11)
[2020-03-27] MEDS: ATORVASTATIN 20 MG TAB PO SCH (22:10)
[2020-03-28] MEDS ORDERED: HYDROcodone-ACET 10/325MG TAB PO ONE (02:45)
[2020-03-28] MEDS: MEROPENEM 1GM IVPB 100 ML IV SCH ×3 (05:27→22:27)
[2020-03-28 06:16] LABS: Basophils # (auto) 0 10 ^3/uL (0-0.2); Eosinophils # (auto) 0 10 ^3/uL (0-0.8); Hematocrit 33.8 % (41.0-53.0); Hemoglobin 11.3 g/dL (13.5-17.5); Lymphocytes # (auto) 0.3 10 ^3/uL (0.4-5.4); Lymphocytes % (auto) 9.3 % (10.0-50.0); Mean Corpuscular Hemoglobin 30.7 pg (28.0-32.0); Mean Corpuscular Hgb Conc. 33.5 g/dL (32.0-36.0); Mean Corpuscular Volume 91.8 fL (80.0-100.0); Monocytes # (auto) 0.2 10 ^3/uL (0-1.3); Monocytes % (auto) 4.5 % (0.0-12.0); Neutrophils # (auto) 2.9 10 ^3/uL (1.6-8.6); Neutrophils % (auto) 86.2 % (37.0-80.0); Platelet Count (auto) 101 10^3/uL (140-450); Red Blood Cells 3.69 10^6/uL (4.5-5.90); Red Cell Distribution Width 14.4 % (11.8-14.3); White Blood Cell 3.3 10^3/uL (4.4-10.8)
[2020-03-28 06:28] LABS: Albumin 2.1 g/dL (3.4-5.0); Calcium 7.9 mg/dL (8.5-10.1); Potassium 4.2 mmol/L (3.5-5.1)
[2020-03-28] MEDS: ALBUTEROL SULF HFA 90MCG INH 200DOSE IN SCH ×3 (06:30→21:15)
[2020-03-28 06:32] LABS: BUN/Creatinine Ratio 30.5; Bilirubin, Total 0.5 mg/dL (0.2-1.0); Total Protein 5.4 g/dL (6.4-8.2)
[2020-03-28] MEDS: NOREPINEPHRINE 8 MG/250ML KIT 250 ML IV SCH (07:45)
[2020-03-28] MEDS: SODIUM CHLORIDE 0.9% 1,000 ML IV SCH ×2 (08:00→18:27)
[2020-03-28] MEDS ORDERED: CHOLECALCIFEROL (VITD3) 1,000UNIT=25mCg TAB PO SCH (10:00)
[2020-03-28] MEDS: methylPREDNISolone SOD SUCC 40 MG/ML VL IV SCH ×2 (10:00→22:28)
[2020-03-28] MEDS ORDERED: VANCOMYCIN 1GM/250ML 250 ML IV SCH (11:00)
[2020-03-28] MEDS: PANTOPRAZOLE 40 MG TAB PO SCH (11:26)
[2020-03-28] MEDS: FOLIC ACID 1 MG TAB PO SCH (11:26)
[2020-03-28] MEDS: ASCORBIC ACID 1,000 MG TAB PO SCH (11:27)
[2020-03-28] MEDS: ENOXAPARIN SOD 40 MG/0.4 ML SYRINGE SC SCH (11:34)
[2020-03-28] MEDS ORDERED: ZINC SULFATE 220mg CAP or TAB PO ONE (13:00)
[2020-03-28] MEDS: ATORVASTATIN 20 MG TAB PO SCH (22:28)
[2020-03-29] MEDS: SODIUM CHLORIDE 0.9% 1,000 ML IV SCH ×2 (04:00→15:30)
[2020-03-29 05:58] LABS: Basophils # (auto) 0 10 ^3/uL (0-0.2); Basophils % (auto) 0.1 % (0.0-2.0); Eosinophils # (auto) 0 10 ^3/uL (0-0.8); Hematocrit 33.2 % (41.0-53.0); Lymphocytes # (auto) 0.2 10 ^3/uL (0.4-5.4); Lymphocytes % (auto) 4.1 % (10.0-50.0); Mean Corpuscular Hemoglobin 30.4 pg (28.0-32.0); Mean Corpuscular Hgb Conc. 33.2 g/dL (32.0-36.0); Mean Corpuscular Volume 91.5 fL (80.0-100.0); Monocytes # (auto) 0.3 10 ^3/uL (0-1.3); Monocytes % (auto) 5.8 % (0.0-12.0); Platelet Count (auto) 115 10^3/uL (140-450); Red Blood Cells 3.63 10^6/uL (4.5-5.90); Red Cell Distribution Width 14.1 % (11.8-14.3); White Blood Cell 5.6 10^3/uL (4.4-10.8)
[2020-03-29] MEDS: ALBUTEROL SULF HFA 90MCG INH 200DOSE IN SCH ×2 (06:00→14:00)
[2020-03-29 06:32] LABS: Albumin 2.3 g/dL (3.4-5.0); BUN/Creatinine Ratio 33.8; Bilirubin, Total 0.6 mg/dL (0.2-1.0); Calcium 7.8 mg/dL (8.5-10.1); Potassium 4.2 mmol/L (3.5-5.1); Total Protein 5.2 g/dL (6.4-8.2)
[2020-03-29] MEDS: MEROPENEM 1GM IVPB 100 ML IV SCH (06:52)
[2020-03-29 06:56] LABS: Urine Amorphous Crystal FEW /hpf (None Seen); Urine Bacteria FEW /hpf (None Seen); Urine Blood Negative /uL (Negative); Urine Hyaline Cast FEW /lpf (0 - 2); Urine Specific Gravity 1.027 (1.001-1.035); Urine WBC 3 /hpf (0 - 3)
[2020-03-29] MEDS: NOREPINEPHRINE 8 MG/250ML KIT 250 ML IV SCH (07:45)
[2020-03-29 08:00] VITALS: BP 119/75
[2020-03-29] MEDS: PANTOPRAZOLE 40 MG TAB PO SCH (10:00)
[2020-03-29] MEDS: ENOXAPARIN SOD 40 MG/0.4 ML SYRINGE SC SCH (10:00)
[2020-03-29] MEDS: ASCORBIC ACID 1,000 MG TAB PO SCH (10:00)
[2020-03-29] MEDS: FOLIC ACID 1 MG TAB PO SCH (10:00)
[2020-03-29] MEDS ORDERED: CHOLECALCIFEROL (VITD3) 2,000 UNIT CAP PO SCH (10:00)
[2020-03-29] MEDS ORDERED: ZINC SULFATE 220mg CAP or TAB PO SCH (10:00)
[2020-03-29] MEDS: methylPREDNISolone SOD SUCC 40 MG/ML VL IV SCH (12:34)
[2020-03-29] MEDS ORDERED: DOXYCYCLINE 100 MG TAB/CAP PO SCH (14:00)
[2020-03-29] MEDS ORDERED: DOX100T PO (14:07)
[2020-03-29] MEDS ORDERED: ASCO10003 PO (14:07)
[2020-03-29] MEDS ORDERED: CHOL1CAP47 PO (14:07)
[2020-03-29] MEDS ORDERED: ZINC220T6 PO (14:07)
[2020-03-29] MEDS ORDERED: PRED20TA2 PO (14:07)
--- NOTE | 2020-03-29 14:30 | NUR ---
I faxed home health order to [facility] and [facility].
--- NOTE | 2020-03-29 15:24 | NUR ---
I called [facility] and spoke with [employer] Trimmer Kelsea, she will send authorization for home health to [facility]. Per Kelsea, patient already has home oxygen.
--- NOTE | 2020-03-29 15:36 | NUR ---
I received a message from [facility] letting me know that they can not accept this patient on service due to COVID +. I spoke with [facility] Supervisor Rod Placing Kelsea-she said they do not contract with any home health agencies that accept COVID + patients. Per Kelsea she will make sure patient has appointment with primary care physician this week, and she will notify Dr. Amezcua that they have no home health available for this patient.
--- NOTE | 2020-03-29 15:54 | NUR ---
I received a message from [facility] Appeals Writer Kelsea letting me know that they arranged a tele apppointment with Dr. Dougherty-patient's PCP for 1pm tomorrow-she will notify patient.
[2020-03-30] MEDS ORDERED: predniSONE 20 MG TAB PO SCH (10:00)
== END 2020-03-29 16:46 | disposition home or self-care (01) | DRG 871 ==
LOC: ER 17:46 → TELE 17:47
PROVIDERS: ADMIT Hospitalist; ATTEND Internal Medicine
PROC: 02HV33Z Insertion of Infusion Device into Superior Vena Cava, Percutaneous Approach (ICD-10-PCS; principal; 2020-03-27)
DX: A41.89 Other specified sepsis (principal); I21.4 Non-ST elevation (NSTEMI) myocardial infarction; U07.1 COVID-19; J69.0 Pneumonitis due to inhalation of food and vomit; J96.21 Acute and chronic respiratory failure with hypoxia; R65.21 Severe sepsis with septic shock; I42.9 Cardiomyopathy, unspecified; J44.1 Chronic obstructive pulmonary disease with (acute) exacerbation; J98.11 Atelectasis; I50.20 Unspecified systolic (congestive) heart failure; E78.5 Hyperlipidemia, unspecified; D69.6 Thrombocytopenia, unspecified; E55.9 Vitamin D deficiency, unspecified; R91.1 Solitary pulmonary nodule; I25.10 Atherosclerotic heart disease of native coronary artery without angina pectoris; I48.91 Unspecified atrial fibrillation; M19.90 Unspecified osteoarthritis, unspecified site; Z86.711 Personal history of pulmonary embolism; Z87.891 Personal history of nicotine dependence; Z90.49 Acquired absence of other specified parts of digestive tract; Z88.8 Allergy status to other drugs, medicaments and biological substances; I11.0 Hypertensive heart disease with heart failure
CPT/HCPCS: 36415; 71045; 71275; 80053; 80061; 81001; 83605; 83735; 83880; 84443; 84484; 85025; 85379; 85610; 85730; 87040; 87086; 87426; 93005; 93306; 94640; 96361; 96365; 96366; 96368; 99291; G0378; J2185; J2543

== ENCOUNTER 2020-05-04 11:35 | Inpatient (IN) | payer MEDICARE, OTHER ==
[~2020-05-04] VITALS: Ht 180.3 cm; Wt 72.2 kg
[~2020-05-04 11:35] MED LIST changes: +ALB5IS NEB; +ASCO10003 PO; +CHOL1CAP47 PO; -CLOP75TA28 PO; +DOX100T PO; +FAMO20TA10 PO; +IPRA0.03; +PRED20TA2 PO; +ZINC220T6 PO
[2020-05-04 11:59] LABS: Hematocrit 33.9 % (41.0-53.0); Hemoglobin 11.2 g/dL (13.5-17.5); Mean Corpuscular Hemoglobin 30.8 pg (28.0-32.0); Mean Corpuscular Volume 93.5 fL (80.0-100.0); Red Blood Cells 3.62 10^6/uL (4.5-5.90); Red Cell Distribution Width 16.8 % (11.8-14.3)
[2020-05-04 12:04] LABS: White Blood Cell 30.4 10^3/uL (4.4-10.8)
[2020-05-04 12:06] LABS: Basophils % (manual) 0 (0.0-2.0); Blast Cells 0; Eosinophils % (manual) 0 (0-7); Metamyelocytes % 0; Myelocytes % 0; Promyelocytes % 0; Reactive Lymphocytes 0
[2020-05-04 12:12] LABS: Albumin 2.3 g/dL (3.4-5.0); Calcium 8.7 mg/dL (8.5-10.1); Potassium 4.2 mmol/L (3.5-5.1)
[2020-05-04] MEDS ORDERED: cefTRIAXone 1GM/50ML D5W 50 ML IV ONE (12:15)
[2020-05-04] MEDS ORDERED: AZITHROMYCIN 500MG/ 250ML 250 ML IV ONE (12:15)
[2020-05-04 12:17] LABS: BUN/Creatinine Ratio 33.7; Bilirubin, Total 2.2 mg/dL (0.2-1.0); Lactic Acid w/Reflex 4.4 mmol/L (0.4-2.0); Total Protein 5.6 g/dL (6.4-8.2)
[2020-05-04 12:45] LABS: INR 1.12 (0.9-1.15); Partial Thromboplastin Time 34.4 sec (23.0-31.2)
[2020-05-04 13:26] LABS: CRP High Sensitivity 1.95 mg/dL (< 0.3)
[2020-05-04 13:55] LABS: Band Neutrophils % (manual) 17; Lymphocytes % (manual) 4 (10.0-50.0); Monocytes % (manual) 2 (0-12)
[2020-05-04] MEDS ORDERED: LACTULOSE 20Gm/30ML SOLN PO PRN (15:45)
[2020-05-04] MEDS ORDERED: ONDANSETRON HCL 4 MG/2 ML VIAL IV PRN (15:45)
[2020-05-04] MEDS ORDERED: NITROGLYCERIN 0.4 MG SL TAB SL PRN (15:45)
[2020-05-04] MEDS ORDERED: ACETAMINOPHEN 500 MG TAB PO PRN (15:45)
[2020-05-04] MEDS ORDERED: MORPHINE SULFATE INJECTION 2 MG/ML SYRG IV PRN ×2 (15:45)
[2020-05-04] MEDS ORDERED: ALBUTEROL SULF 2.5 MG/0.5ML(0.5%) NEB SOLN NEB PRN (15:45)
[2020-05-04] MEDS ORDERED: IOHEXOL 350 MG/ML 100ML IJ ONE (15:56)
[2020-05-04] MEDS: SODIUM CHLORIDE 0.9% 1,000 ML IV SCH ×2 (15:57→17:37)
[2020-05-04] MEDS ORDERED: levoFLOXacin 500MG 100 ML IV ONE (16:00)
[2020-05-04] MEDS ORDERED: VANCOMYCIN 1GM/250ML 250 ML IV ONE (16:00)
[2020-05-04] MEDS ORDERED: VANCOMYCIN PER PHARMACY 0 MG IV SCH (16:00)
[2020-05-04] MEDS: ALBUTEROL SULF 2.5 MG/0.5ML(0.5%) NEB SOLN NEB SCH (18:00)
[2020-05-04] MEDS: IPRATROPIUM BROM 0.5 MG/2.5ML INH SOL NEB SCH (18:00)
[2020-05-04 18:47] LABS: Urine Bacteria NONE SEEN /hpf (None Seen); Urine Blood Negative /uL (Negative); Urine Specific Gravity 1.029 (1.001-1.035); Urine WBC 1 /hpf (0 - 3)
[2020-05-04] MEDS ORDERED: CLINDAMYCIN 600MG IV 50 ML IV SCH (22:00)
[2020-05-04] MEDS: CARVEDILOL 3.125 MG TAB PO SCH (22:00)
[2020-05-04] MEDS: FAMOTIDINE 20 MG TAB PO SCH (22:28)
[2020-05-05] MEDS ORDERED: ACETAMINOPHEN 500 MG TAB PO ONE (03:33)
[2020-05-05] MEDS ORDERED: ACETAMINOPHEN 325 MG TAB PO ONE (03:45)
[2020-05-05 07:41] LABS: Hematocrit 27.7 % (41.0-53.0); Hemoglobin 9.3 g/dL (13.5-17.5); Mean Corpuscular Hemoglobin 31.6 pg (28.0-32.0); Mean Corpuscular Hgb Conc. 33.7 g/dL (32.0-36.0); Mean Corpuscular Volume 93.8 fL (80.0-100.0); Red Blood Cells 2.95 10^6/uL (4.5-5.90); Red Cell Distribution Width 16.1 % (11.8-14.3); White Blood Cell 29.6 10^3/uL (4.4-10.8)
[2020-05-05 07:51] LABS: Basophils % (manual) 0 (0.0-2.0); Blast Cells 0; Eosinophils % (manual) 0 (0-7); Myelocytes % 0; Promyelocytes % 0; Reactive Lymphocytes 0
[2020-05-05 08:01] LABS: Albumin 1.9 g/dL (3.4-5.0); Calcium 8.5 mg/dL (8.5-10.1); Potassium 4.5 mmol/L (3.5-5.1)
[2020-05-05 08:04] LABS: BUN/Creatinine Ratio 32.6; Bilirubin, Total 1.9 mg/dL (0.2-1.0); Total Protein 5.1 g/dL (6.4-8.2)
[2020-05-05 09:12] LABS: Band Neutrophils % (manual) 14; Lymphocytes % (manual) 2 (10.0-50.0); Metamyelocytes % 1; Monocytes % (manual) 3 (0-12)
[2020-05-05] MEDS: VANCOMYCIN 1GM/250ML 250 ML IV SCH (10:00)
[2020-05-05] MEDS ORDERED: levoFLOXacin 500MG 100 ML IV SCH (10:00)
[2020-05-05] MEDS: CARVEDILOL 3.125 MG TAB PO SCH ×2 (10:00→23:10)
[2020-05-05] MEDS: ASCORBIC ACID 1,000 MG TAB PO SCH (10:00)
[2020-05-05] MEDS: CHOLECALCIFEROL (VITD3) 2,000 UNIT CAP/TAB PO SCH (10:00)
[2020-05-05] MEDS: SODIUM CHLORIDE 0.9% 1,000 ML IV SCH ×2 (10:42→21:45)
[2020-05-05] MEDS: HYDROcodone-ACET 10/325MG TAB PO PRN (13:15)
[2020-05-05] MEDS: levoFLOXacin 500MG 100 ML IV SCH (13:18)
[2020-05-05] MEDS: ALBUTEROL SULF 2.5 MG/0.5ML(0.5%) NEB SOLN NEB SCH ×3 (13:52→18:00)
[2020-05-05] MEDS: IPRATROPIUM BROM 0.5 MG/2.5ML INH SOL NEB SCH ×3 (13:52→18:00)
[2020-05-05] MEDS ORDERED: SODIUM CHLORIDE 0.9% 1,000 ML IV ONE (15:00)
[2020-05-05] MEDS: NOREPINEPHRINE 8 MG/250ML KIT 250 ML IV SCH (15:42)
[2020-05-05] MEDS: traMADol HCL 50 MG TAB PO PRN (17:01)
[2020-05-05] MEDS: FAMOTIDINE 20 MG TAB PO SCH (23:10)
[2020-05-06] MEDS: ALPRAZolam 0.5 MG TAB PO PRN ×2 (04:10→23:27)
[2020-05-06] MEDS: VANCOMYCIN 1GM/250ML 250 ML IV SCH (04:14)
[2020-05-06] MEDS: SODIUM CHLORIDE 0.9% 1,000 ML IV SCH ×2 (09:34→15:30)
[2020-05-06] MEDS: ASCORBIC ACID 1,000 MG TAB PO SCH (10:19)
[2020-05-06] MEDS: CHOLECALCIFEROL (VITD3) 2,000 UNIT CAP/TAB PO SCH (10:19)
[2020-05-06] MEDS: CARVEDILOL 3.125 MG TAB PO SCH (10:19)
[2020-05-06] MEDS: HYDROcodone-ACET 10/325MG TAB PO PRN ×2 (10:20→18:43)
[2020-05-06] MEDS: levoFLOXacin 500MG 100 ML IV SCH (12:00)
[2020-05-06] MEDS ORDERED: DexAMETHasone SOD PHOS 10MG/1ML VIAL INJ IV ONE (12:15)
[2020-05-06] MEDS: NOREPINEPHRINE 8 MG/250ML KIT 250 ML IV SCH (12:30)
[2020-05-06] MEDS ORDERED: ALBUTEROL SULF HFA 90MCG INH 200DOSE IN SCH (14:00)
[2020-05-06] MEDS: ALBUTEROL SULF HFA 90MCG INH 200DOSE IN PRN (20:46)
[2020-05-06] MEDS: FAMOTIDINE (10MG/ML) 2ML VL IV SCH (21:41)
[2020-05-06] MEDS ORDERED: BUDESONIDE (INHALATION) 0.5 MG/2 ML NEB NEB SCH (22:00)
[2020-05-07] MEDS: HYDROcodone-ACET 10/325MG TAB PO PRN (03:50)
[2020-05-07] MEDS: SODIUM CHLORIDE 0.9% 1,000 ML IV SCH ×2 (04:47→18:54)
[2020-05-07] MEDS: ALBUTEROL SULF HFA 90MCG INH 200DOSE IN PRN ×2 (06:56→19:43)
[2020-05-07 09:15] LABS: Basophils # (auto) 0 10 ^3/uL (0-0.2); Eosinophils # (auto) 0 10 ^3/uL (0-0.8); Hematocrit 29.3 % (41.0-53.0); Hemoglobin 9.9 g/dL (13.5-17.5); Lymphocytes # (auto) 0.3 10 ^3/uL (0.4-5.4); Lymphocytes % (auto) 3.5 % (10.0-50.0); Mean Corpuscular Hemoglobin 31.6 pg (28.0-32.0); Mean Corpuscular Hgb Conc. 33.8 g/dL (32.0-36.0); Mean Corpuscular Volume 93.6 fL (80.0-100.0); Monocytes # (auto) 0.3 10 ^3/uL (0-1.3); Monocytes % (auto) 3.6 % (0.0-12.0); Neutrophils # (auto) 8.6 10 ^3/uL (1.6-8.6); Neutrophils % (auto) 92.9 % (37.0-80.0); Red Blood Cells 3.13 10^6/uL (4.5-5.90); Red Cell Distribution Width 16.4 % (11.8-14.3); White Blood Cell 9.3 10^3/uL (4.4-10.8)
[2020-05-07 09:32] LABS: Potassium 4.3 mmol/L (3.5-5.1)
[2020-05-07 10:12] LABS: BUN/Creatinine Ratio 27.3; CRP High Sensitivity 11.8 mg/dL (< 0.3)
[2020-05-07 10:21] LABS: Calcium 8.7 mg/dL (8.5-10.1)
[2020-05-07] MEDS: ASCORBIC ACID 1,000 MG TAB PO SCH (10:37)
[2020-05-07] MEDS: ENOXAPARIN SOD 40 MG/0.4 ML SYRINGE SC SCH (10:37)
[2020-05-07] MEDS: DexAMETHasone SOD PHOS 10MG/1ML VIAL INJ IV SCH (10:37)
[2020-05-07] MEDS: CHOLECALCIFEROL (VITD3) 2,000 UNIT CAP/TAB PO SCH (10:37)
[2020-05-07] MEDS: FAMOTIDINE (10MG/ML) 2ML VL IV SCH ×2 (10:37→21:06)
[2020-05-07] MEDS: levoFLOXacin 500MG 100 ML IV SCH (12:00)
[2020-05-07] MEDS: NOREPINEPHRINE 8 MG/250ML KIT 250 ML IV SCH (13:45)
[2020-05-08] MEDS: ALBUTEROL SULF HFA 90MCG INH 200DOSE IN PRN ×2 (06:26→22:38)
[2020-05-08] MEDS: SODIUM CHLORIDE 0.9% 1,000 ML IV SCH (07:38)
[2020-05-08] MEDS: DexAMETHasone SOD PHOS 10MG/1ML VIAL INJ IV SCH (07:47)
[2020-05-08] MEDS: ASCORBIC ACID 1,000 MG TAB PO SCH (07:47)
[2020-05-08] MEDS: FAMOTIDINE (10MG/ML) 2ML VL IV SCH ×2 (07:47→20:57)
[2020-05-08] MEDS: ENOXAPARIN SOD 40 MG/0.4 ML SYRINGE SC SCH (07:48)
[2020-05-08] MEDS: CHOLECALCIFEROL (VITD3) 2,000 UNIT CAP/TAB PO SCH (07:48)
[2020-05-08] MEDS ORDERED: REMDESIVIR PER PHARMACY 0 ML IV SCH (11:15)
[2020-05-08] MEDS: levoFLOXacin 500MG 100 ML IV SCH (11:35)
[2020-05-08] MEDS ORDERED: REMDESIVIR 200 MG in NS 210ml LOADING DOSE ADULT IV ONE (15:00)
[2020-05-08 16:00] VITALS: BP 138/80
[2020-05-08] MEDS: traMADol HCL 50 MG TAB PO PRN (18:14)
[2020-05-08] MEDS: HYDROcodone-ACET 10/325MG TAB PO PRN (20:57)
[2020-05-08] MEDS ORDERED: CAR3125T PO (23:40)
[2020-05-08] MEDS ORDERED: FLUT250M2 INH (23:40)
[2020-05-08] MEDS ORDERED: PRED20TA2 PO (23:40)
[2020-05-08] MEDS ORDERED: ALB2.5IS NEB (23:40)
[2020-05-08] MEDS ORDERED: UMEC1INH IN (23:40)
[2020-05-08] MEDS ORDERED: LISI-716 PO (23:40)
[2020-05-08] MEDS ORDERED: IPRA0.03 (23:40)
[2020-05-08] MEDS ORDERED: LOVA20TA4 PO (23:40)
[2020-05-08] MEDS ORDERED: FURO1TAB31 PO (23:40)
[2020-05-08] MEDS ORDERED: POTA10TA51 PO (23:40)
[2020-05-08] MEDS ORDERED: HYDR-531 PO (23:40)
[2020-05-08] MEDS ORDERED: FOLI1TAB6 PO (23:40)
[2020-05-08 23:48] VITALS: BP 127/82
[2020-05-09] MEDS: ALPRAZolam 0.5 MG TAB PO PRN ×2 (00:42→23:53)
[2020-05-09 08:00] VITALS: BP 121/71
[2020-05-09 08:00] LABS: Basophils # (auto) 0 10 ^3/uL (0-0.2); Basophils % (auto) 0.1 % (0.0-2.0); Eosinophils # (auto) 0 10 ^3/uL (0-0.8); Hematocrit 27.5 % (41.0-53.0); Hemoglobin 9.5 g/dL (13.5-17.5); Lymphocytes # (auto) 0.5 10 ^3/uL (0.4-5.4); Lymphocytes % (auto) 5.2 % (10.0-50.0); Mean Corpuscular Hemoglobin 32.2 pg (28.0-32.0); Mean Corpuscular Hgb Conc. 34.7 g/dL (32.0-36.0); Mean Corpuscular Volume 92.8 fL (80.0-100.0); Monocytes # (auto) 0.5 10 ^3/uL (0-1.3); Monocytes % (auto) 4.9 % (0.0-12.0); Neutrophils # (auto) 9.2 10 ^3/uL (1.6-8.6); Neutrophils % (auto) 89.8 % (37.0-80.0); Red Blood Cells 2.96 10^6/uL (4.5-5.90); White Blood Cell 10.2 10^3/uL (4.4-10.8)
[2020-05-09 08:13] LABS: Potassium 4.4 mmol/L (3.5-5.1)
[2020-05-09 08:31] LABS: Albumin 1.9 g/dL (3.4-5.0); BUN/Creatinine Ratio 33.9; Bilirubin, Total 0.8 mg/dL (0.2-1.0); CRP High Sensitivity 3.28 mg/dL (< 0.3); Calcium 8.3 mg/dL (8.5-10.1); Total Protein 4.9 g/dL (6.4-8.2)
[2020-05-09] MEDS: levoFLOXacin 500 MG TAB PO SCH (10:35)
[2020-05-09] MEDS: DexAMETHasone SOD PHOS 10MG/1ML VIAL INJ IV SCH (10:35)
[2020-05-09] MEDS: CHOLECALCIFEROL (VITD3) 2,000 UNIT CAP/TAB PO SCH (10:36)
[2020-05-09] MEDS: ENOXAPARIN SOD 40 MG/0.4 ML SYRINGE SC SCH (10:36)
[2020-05-09] MEDS: ASCORBIC ACID 1,000 MG TAB PO SCH (10:36)
[2020-05-09] MEDS: HYDROcodone-ACET 10/325MG TAB PO PRN ×2 (11:02→22:38)
[2020-05-09] MEDS: FAMOTIDINE (10MG/ML) 2ML VL IV SCH ×2 (13:08→22:37)
[2020-05-09] MEDS: REMDESIVIR 100mg 100 MG in SODIUM CHL 0.9% 230 ML IV SCH (14:36)
[2020-05-09 16:00] VITALS: BP 127/85
[2020-05-09 16:21] VITALS: BP 124/85
[2020-05-09] MEDS: traMADol HCL 50 MG TAB PO PRN (16:49)
[2020-05-09] MEDS: ALBUTEROL SULF HFA 90MCG INH 200DOSE IN PRN (20:21)
[2020-05-09 23:54] VITALS: BP 113/77
[2020-05-10 07:00] LABS: Calcium 8.1 mg/dL (8.5-10.1); Potassium 4.1 mmol/L (3.5-5.1)
[2020-05-10 07:02] LABS: BUN/Creatinine Ratio 32.9; Bilirubin, Total 0.8 mg/dL (0.2-1.0); Total Protein 4.8 g/dL (6.4-8.2)
[2020-05-10 08:00] VITALS: BP 142/72
[2020-05-10] MEDS: ASCORBIC ACID 1,000 MG TAB PO SCH (10:39)
[2020-05-10] MEDS: CHOLECALCIFEROL (VITD3) 2,000 UNIT CAP/TAB PO SCH (10:39)
[2020-05-10] MEDS: FAMOTIDINE (10MG/ML) 2ML VL IV SCH ×2 (10:40→21:15)
[2020-05-10] MEDS: levoFLOXacin 500 MG TAB PO SCH (10:40)
[2020-05-10] MEDS: DexAMETHasone SOD PHOS 10MG/1ML VIAL INJ IV SCH (10:40)
[2020-05-10] MEDS: ENOXAPARIN SOD 40 MG/0.4 ML SYRINGE SC SCH (10:41)
[2020-05-10] MEDS: HYDROcodone-ACET 10/325MG TAB PO PRN ×2 (11:00→21:16)
[2020-05-10] MEDS: REMDESIVIR 100mg 100 MG in SODIUM CHL 0.9% 230 ML IV SCH (15:38)
[2020-05-10 16:00] VITALS: BP 136/90
[2020-05-10] MEDS: traMADol HCL 50 MG TAB PO PRN (16:10)
[2020-05-10] MEDS: ALBUTEROL SULF HFA 90MCG INH 200DOSE IN PRN (20:14)
[2020-05-10] MEDS: ALPRAZolam 0.5 MG TAB PO PRN (23:09)
[2020-05-11] VITALS: BP 132/75
[2020-05-11 06:28] LABS: Potassium 4.2 mmol/L (3.5-5.1)
[2020-05-11 06:40] LABS: Albumin 2.1 g/dL (3.4-5.0); BUN/Creatinine Ratio 27.9; Bilirubin, Total 0.9 mg/dL (0.2-1.0); Calcium 8.1 mg/dL (8.5-10.1); Total Protein 4.9 g/dL (6.4-8.2)
[2020-05-11 08:00] VITALS: BP 129/79
[2020-05-11] MEDS: ASCORBIC ACID 1,000 MG TAB PO SCH (09:34)
[2020-05-11] MEDS: FAMOTIDINE (10MG/ML) 2ML VL IV SCH (09:34)
[2020-05-11] MEDS: levoFLOXacin 500 MG TAB PO SCH (09:34)
[2020-05-11] MEDS: CHOLECALCIFEROL (VITD3) 2,000 UNIT CAP/TAB PO SCH (09:34)
[2020-05-11] MEDS: DexAMETHasone SOD PHOS 10MG/1ML VIAL INJ IV SCH (09:34)
[2020-05-11] MEDS: ENOXAPARIN SOD 40 MG/0.4 ML SYRINGE SC SCH (09:50)
[2020-05-11] MEDS: HYDROcodone-ACET 10/325MG TAB PO PRN (10:10)
[2020-05-11] MEDS ORDERED: REMDESIVIR 100mg 100 MG in SODIUM CHL 0.9% 230 ML IV SCH (12:30)
[2020-05-11] MEDS ORDERED: PRED20TA2 PO (12:39)
[2020-05-11] MEDS ORDERED: FAMO20TA10 PO (12:39)
[2020-05-11] MEDS ORDERED: DOXY-286 PO (12:39)
[2020-05-11 15:56] VITALS: BP 110/60
== END 2020-05-11 18:20 | disposition home health service (06) | DRG 871 ==
LOC: ER 11:35 → EDBD 11:35 → TELE 11:36 → TELE-WESTW 05-08 14:30
PROVIDERS: ADMIT Internal Medicine; ATTEND Hospitalist
PROC: XW033E5 Introduction of Remdesivir Anti-infective into Peripheral Vein, Percutaneous Approach, New Technology Group 5 (ICD-10-PCS; principal; 2020-05-08)
DX: A41.9 Sepsis, unspecified organism (principal); U07.1 COVID-19; I21.4 Non-ST elevation (NSTEMI) myocardial infarction; J96.21 Acute and chronic respiratory failure with hypoxia; J12.82 Pneumonia due to coronavirus disease 2019; I50.9 Heart failure, unspecified; I48.91 Unspecified atrial fibrillation; M19.90 Unspecified osteoarthritis, unspecified site; I25.10 Atherosclerotic heart disease of native coronary artery without angina pectoris; I27.20 Pulmonary hypertension, unspecified; J43.9 Emphysema, unspecified; I25.2 Old myocardial infarction; Z66 Do not resuscitate; Z86.711 Personal history of pulmonary embolism; Z87.891 Personal history of nicotine dependence; Z95.5 Presence of coronary angioplasty implant and graft; Z95.828 Presence of other vascular implants and grafts; Z90.49 Acquired absence of other specified parts of digestive tract; Z88.6 Allergy status to analgesic agent
CPT/HCPCS: 36415; 51702; 71045; 71275; 80048; 80053; 81001; 82728; 83605; 83615; 83735; 83880; 84484; 85007; 85025; 85027; 85379; 85610; 85730; 86141; 87040; 87086; 87426; 93005; 94640; 96365; 96368; 97116; 97163; 97530; 99291; G0378; J0696; J1100; J1956; J3490

== ENCOUNTER 2020-05-16 20:42 | Inpatient (IN) | payer MEDICARE ==
[~2020-05-16] VITALS: Ht 182.9 cm; Wt 68.0 kg
[~2020-05-16 20:42] MED LIST changes: -ALPR0.5T PO; -ASCO10003 PO; -CHOL1CAP47 PO; -CHOL400L8 PO; -CYA100I PO; -DOX100T PO; +DOXY-286 PO; +FLUT250M2 INH; +LISI-648 PO; -LISI-711 PO; -RANITAB8 PO; +UMEC1INH IN; -ZINC220T6 PO
[2020-05-16 21:27] LABS: Basophils # (auto) 0 10 ^3/uL (0-0.2); Eosinophils # (auto) 0 10 ^3/uL (0-0.8); Hematocrit 33.2 % (41.0-53.0); Hemoglobin 11.1 g/dL (13.5-17.5); Lymphocytes # (auto) 0.4 10 ^3/uL (0.4-5.4); Lymphocytes % (auto) 4.1 % (10.0-50.0); Mean Corpuscular Hemoglobin 32.4 pg (28.0-32.0); Mean Corpuscular Hgb Conc. 33.5 g/dL (32.0-36.0); Mean Corpuscular Volume 96.8 fL (80.0-100.0); Monocytes # (auto) 0.6 10 ^3/uL (0-1.3); Monocytes % (auto) 5.9 % (0.0-12.0); Neutrophils # (auto) 9.6 10 ^3/uL (1.6-8.6); Platelet Count (auto) 264 10^3/uL (140-450); Red Blood Cells 3.43 10^6/uL (4.5-5.90); Red Cell Distribution Width 17.6 % (11.8-14.3); White Blood Cell 10.7 10^3/uL (4.4-10.8)
[2020-05-16 21:34] LABS: Albumin 2.1 g/dL (3.4-5.0); Anion Gap 5 (5-15); Blood Urea Nitrogen 32 mg/dL (7-18); Calcium 8.7 mg/dL (8.5-10.1); Carbon Dioxide 30 mmol/L (21-32); Chloride 101 mmol/L (98-107); Glucose 123 mg/dL (74-106); Magnesium 1.9 mg/dL (1.6-2.6); Potassium 4.4 mmol/L (3.5-5.1); Sodium 136 mmol/L (136-145)
[2020-05-16 21:36] LABS: Alanine Aminotransferase 32 U/L (16-61); Aspartate Aminotransferase 18 U/L (15-37); BUN/Creatinine Ratio 37.6; GFR African American 110 mL/min; GFR Non-African American 91 mL/min
[2020-05-16 21:43] LABS: INR 1.15 (0.9-1.15); Partial Thromboplastin Time 43.1 sec (23.0-31.2)
[2020-05-16] MEDS ORDERED: dilTIAZem 25 MG/5 ML VIAL IV ONE (21:45)
[2020-05-16] MEDS ORDERED: dilTIAZem HCL 60 MG TAB PO ONE (21:45)
[2020-05-16 21:46] LABS: Alkaline Phosphatase 93 U/L (45-117); Bilirubin, Total 1.6 mg/dL (0.2-1.0); Total Protein 5.4 g/dL (6.4-8.2)
[2020-05-16 21:53] LABS: Lactic Acid w/Reflex 3.2 mmol/L (0.4-2.0)
[2020-05-16] MEDS ORDERED: PIPERACILLIN-TAZOB 3.375GM 100 ML IV ONE (22:45)
[2020-05-16] MEDS ORDERED: VANCOMYCIN 1GM/250ML 250 ML IV ONE (22:45)
[2020-05-17] MEDS ORDERED: VANCOMYCIN PER PHARMACY 0 MG IV SCH (00:30)
[2020-05-17] MEDS ORDERED: ACETAMINOPHEN 325 MG TAB PO PRN (00:30)
[2020-05-17] MEDS ORDERED: ONDANSETRON HCL 4 MG/2 ML VIAL IV PRN (00:30)
[2020-05-17] MEDS ORDERED: NITROGLYCERIN 0.4 MG SL TAB SL PRN (00:30)
[2020-05-17] MEDS ORDERED: TEMAZEPAM 15 MG CAP PO PRN (00:30)
[2020-05-17] MEDS ORDERED: SODIUM CHLORIDE 0.9% 1,000 ML IV SCH (00:30)
[2020-05-17] MEDS ORDERED: MORPHINE SULF INJ 2 MG/ML SYRINGE 1ML IV PRN (00:30)
[2020-05-17] MEDS ORDERED: AMIODARONE HCL 150 MG in D5W 5% 100 ML IV ONE (00:30)
[2020-05-17] MEDS ORDERED: ALBUTEROL SULF HFA 90MCG INH 200DOSE IN PRN (00:30)
[2020-05-17] MEDS ORDERED: AMIODARONE 450mg/250ml AE 250 ML IV SCH (00:45)
[2020-05-17] MEDS ORDERED: AMIODARONE HCL (50 MG/ ML) 3 ML VIAL IV ONE (01:26)
[2020-05-17 02:30] LABS: Magnesium 2.1 mg/dL (1.6-2.6)
[2020-05-17] MEDS ORDERED: ALBUMIN 5% 250 ML IV ONE ×2 (02:35→02:45)
[2020-05-17 02:39] LABS: CRP High Sensitivity 8.8 mg/dL (< 0.3)
[2020-05-17] MEDS: NOREPINEPHRINE 8 MG/250ML KIT 250 ML IV SCH (03:45)
[2020-05-17] MEDS: AMIODARONE 450mg/250ml AE 250 ML IV SCH ×2 (08:05→21:45)
[2020-05-17] MEDS: DOXYCYCLINE 100MG/250ML 250 ML IV SCH ×2 (09:38→21:07)
[2020-05-17] MEDS ORDERED: ASCORBIC ACID 1,000 MG TAB PO SCH (10:00)
[2020-05-17] MEDS ORDERED: CHOLECALCIFEROL (VITD3) 2,000 UNIT CAP PO SCH (10:00)
[2020-05-17] MEDS ORDERED: FAMOTIDINE 20 MG TAB PO SCH ×2 (10:00→22:00)
[2020-05-17] MEDS ORDERED: ZINC SULFATE 220mg CAP or TAB PO SCH (10:00)
[2020-05-17] MEDS ORDERED: ENOXAPARIN SOD 40 MG/0.4 ML SYRINGE SC SCH (10:00)
[2020-05-17] MEDS ORDERED: DexAMETHasone SOD PHOS 10MG/1ML VIAL INJ IV SCH (10:00)
[2020-05-17] MEDS ORDERED: POTA10TA32 PO (11:29)
[2020-05-17] MEDS ORDERED: IPRA0.00 NEB (11:29)
[2020-05-17] MEDS ORDERED: ASCO500T11 PO (11:29)
[2020-05-17] MEDS ORDERED: CHOL20007 PO (11:31)
[2020-05-17] MEDS ORDERED: CYAN1TAB18 PO (11:37)
[2020-05-17] MEDS ORDERED: CHOL100055 PO (11:46)
[2020-05-17] MEDS ORDERED: ALBUTEROL SULF 2.5 MG/0.5ML(0.5%) NEB SOLN NEB PRN (12:15)
[2020-05-17] MEDS ORDERED: FUROSEMIDE 20 MG/2 ML VIAL IV ONE (13:15)
[2020-05-17] MEDS: HYDROcodone-ACET 10/325MG TAB PO PRN ×2 (13:25→21:10)
[2020-05-17] MEDS ORDERED: FUROSEMIDE 40 MG/4 ML VIAL IV ONE (14:15)
[2020-05-17] MEDS ORDERED: IOHEXOL 350 MG/ML 100ML IJ ONE (14:21)
[2020-05-17] MEDS: PANTOPRAZOLE 40 MG TAB PO SCH (15:46)
[2020-05-17] MEDS ORDERED: VANCOMYCIN 1GM/250ML 250 ML IV SCH (17:00)
[2020-05-17] MEDS: FUROSEMIDE 40 MG/4 ML VIAL IV SCH (21:07)
[2020-05-17] MEDS: ATORVASTATIN 20 MG TAB PO SCH (21:08)
[2020-05-17] MEDS: FAMOTIDINE 20 MG TAB PO SCH (21:08)
[2020-05-17] MEDS: PRAVASTATIN SODIUM 20 MG TAB PO SCH (21:08)
[2020-05-17] MEDS: ADVAIR 250/50 PO SCH (22:00)
[2020-05-17] MEDS ORDERED: PATIENTS OWN MEDICATION (Fluticasone-Salmeterol (Advair Diskus 250/50) 1 PUFF) INH SCH (22:00)
[2020-05-18] MEDS: NOREPINEPHRINE 8 MG/250ML KIT 250 ML IV SCH (03:10)
[2020-05-18 06:06] LABS: Basophils # (auto) 0 10 ^3/uL (0-0.2); Basophils % (auto) 0.1 % (0.0-2.0); Eosinophils # (auto) 0 10 ^3/uL (0-0.8); Hemoglobin 10.4 g/dL (13.5-17.5); Lymphocytes # (auto) 0.5 10 ^3/uL (0.4-5.4); Mean Corpuscular Hemoglobin 32.8 pg (28.0-32.0); Mean Corpuscular Hgb Conc. 34.5 g/dL (32.0-36.0); Mean Corpuscular Volume 95.3 fL (80.0-100.0); Monocytes # (auto) 0.8 10 ^3/uL (0-1.3); Neutrophils # (auto) 12.3 10 ^3/uL (1.6-8.6); Neutrophils % (auto) 89.9 % (37.0-80.0); Platelet Count (auto) 287 10^3/uL (140-450); Red Blood Cells 3.15 10^6/uL (4.5-5.90); Red Cell Distribution Width 17.2 % (11.8-14.3); White Blood Cell 13.7 10^3/uL (4.4-10.8)
[2020-05-18 06:27] LABS: Albumin 2.2 g/dL (3.4-5.0); Calcium 8.4 mg/dL (8.5-10.1); Magnesium 2.2 mg/dL (1.6-2.6); Potassium 4.2 mmol/L (3.5-5.1)
[2020-05-18 06:30] LABS: BUN/Creatinine Ratio 34.6; Bilirubin, Total 1.1 mg/dL (0.2-1.0); Total Protein 5.4 g/dL (6.4-8.2)
[2020-05-18] MEDS: FUROSEMIDE 40 MG/4 ML VIAL IV SCH ×2 (07:03→17:09)
[2020-05-18] MEDS: FAMOTIDINE 20 MG TAB PO SCH ×2 (07:07→22:19)
[2020-05-18] MEDS: DOXYCYCLINE 100MG/250ML 250 ML IV SCH ×2 (07:07→22:18)
[2020-05-18] MEDS: PANTOPRAZOLE 40 MG TAB PO SCH (07:07)
[2020-05-18] MEDS: ENOXAPARIN SOD 40 MG/0.4 ML SYRINGE SC SCH (07:08)
[2020-05-18] MEDS: AMIODARONE 450mg/250ml AE 250 ML IV SCH (07:23)
[2020-05-18] MEDS: HYDROcodone-ACET 10/325MG TAB PO PRN ×2 (09:36→17:31)
[2020-05-18] MEDS ORDERED: LOVASTATIN PO SCH (10:00)
[2020-05-18] MEDS: ADVAIR 250/50 PO SCH ×2 (10:00→22:00)
[2020-05-18 13:24] LABS: Urine Bacteria FEW /hpf (None Seen); Urine Blood Negative /uL (Negative); Urine WBC 1 /hpf (0 - 3)
[2020-05-18] MEDS: levoFLOXacin 500MG 100 ML IV SCH (15:13)
[2020-05-18] MEDS ORDERED: AMIODARONE HCL 200 MG TAB ONE (17:00)
[2020-05-18] MEDS: AMIODARONE HCL 200 MG TAB PO SCH ×2 (17:15→22:19)
[2020-05-18] MEDS: methylPREDNISolone SOD SUCC 40 MG/ML VL IV SCH (22:00)
[2020-05-18] MEDS: ATORVASTATIN 20 MG TAB PO SCH (22:19)
[2020-05-18] MEDS: PRAVASTATIN SODIUM 20 MG TAB PO SCH (22:19)
[2020-05-19] MEDS: HYDROcodone-ACET 10/325MG TAB PO PRN (01:33)
[2020-05-19] MEDS: FUROSEMIDE 40 MG/4 ML VIAL IV SCH ×2 (06:03→17:32)
[2020-05-19] MEDS: methylPREDNISolone SOD SUCC 40 MG/ML VL IV SCH ×2 (06:22→13:37)
[2020-05-19] MEDS: levoFLOXacin 500MG 100 ML IV SCH (09:47)
[2020-05-19] MEDS: DOXYCYCLINE 100MG/250ML 250 ML IV SCH ×2 (09:47→12:50)
[2020-05-19] MEDS: ADVAIR 250/50 PO SCH (09:47)
[2020-05-19] MEDS: ENOXAPARIN SOD 40 MG/0.4 ML SYRINGE SC SCH (09:48)
[2020-05-19] MEDS: PANTOPRAZOLE 40 MG TAB PO SCH (09:48)
[2020-05-19] MEDS: AMIODARONE HCL 200 MG TAB PO SCH ×2 (09:48→12:51)
[2020-05-19] MEDS: FAMOTIDINE 20 MG TAB PO SCH (09:48)
[2020-05-19 11:20] VITALS: BP 114/68
[2020-05-19] MEDS ORDERED: LORazepam 2MG/ML-1ML VIAL IV ONE (13:00)
[2020-05-19 16:00] VITALS: BP 99/69
[2020-05-19] MEDS ORDERED: FURO1TAB31 PO (18:03)
[2020-05-19] MEDS ORDERED: LEVO500T31 PO (18:03)
[2020-05-19] MEDS ORDERED: AMIO200T33 PO (18:03)
[2020-05-19] MEDS ORDERED: PRED20TA2 PO (18:03)
[2020-05-19] MEDS ORDERED: MET25T PO (18:03)
[2020-05-19 20:30] VITALS: BP 91/62
[2020-05-19] MEDS ORDERED: METOPROLOL TARTRATE 25 MG TAB PO SCH (22:00)
== END 2020-05-19 21:26 | disposition home health service (06) | DRG 871 ==
LOC: EDUNIT# 20:42 → EDBD 20:42 → ER 20:47 → TELE 05-17 00:24 → TELE-CENTR 05-19 11:12
PROVIDERS: ADMIT Nurse Practitioner; ATTEND Internal Medicine
DX: A41.9 Sepsis, unspecified organism (principal); J18.9 Pneumonia, unspecified organism; J96.01 Acute respiratory failure with hypoxia; I21.4 Non-ST elevation (NSTEMI) myocardial infarction; G92 Toxic encephalopathy; R57.0 Cardiogenic shock; I50.23 Acute on chronic systolic (congestive) heart failure; I48.20 Chronic atrial fibrillation, unspecified; F05 Delirium due to known physiological condition; G93.1 Anoxic brain damage, not elsewhere classified; I42.9 Cardiomyopathy, unspecified; J98.11 Atelectasis; E78.5 Hyperlipidemia, unspecified; K21.9 Gastro-esophageal reflux disease without esophagitis; J43.9 Emphysema, unspecified; Z20.822 Contact with and (suspected) exposure to COVID-19; I11.0 Hypertensive heart disease with heart failure; I25.10 Atherosclerotic heart disease of native coronary artery without angina pectoris; I27.21 Secondary pulmonary arterial hypertension; I70.0 Atherosclerosis of aorta; K59.00 Constipation, unspecified; M41.9 Scoliosis, unspecified; Z79.51 Long term (current) use of inhaled steroids; Z79.899 Other long term (current) drug therapy; Z85.46 Personal history of malignant neoplasm of prostate; Z96.642 Presence of left artificial hip joint; M19.90 Unspecified osteoarthritis, unspecified site; Z88.6 Allergy status to analgesic agent; G62.9 Polyneuropathy, unspecified; Z86.16 Personal history of COVID-19
CPT/HCPCS: 36415; 70551; 71045; 71250; 71275; 74176; 80053; 81001; 82728; 83605; 83615; 83735; 83880; 84443; 84484; 85025; 85379; 85610; 85730; 86141; 87040; 87081; 87426; 93005; 93970; 96361; 96365; 99291; G0378; J1100; J1956; J2543; J3490; J7060

== ENCOUNTER 2020-05-23 11:51 | Inpatient (IN) | payer MEDICARE ==
[~2020-05-23] VITALS: Ht 182.9 cm; Wt 70.6 kg
[~2020-05-23 11:51] MED LIST changes: +AMIO200T33 PO; +ASCO500T11 PO; -CAR3125T PO; +CHOL100055 PO; +CYAN1TAB18 PO; -DOXY-286 PO; -HYDR-531 PO; +IPRA0.00 NEB; -IPRA0.03; +LEVO500T31 PO; -LISI-648 PO; +MET25T PO; +POTA10TA32 PO; -POTA10TA51 PO
[2020-05-23] MEDS ORDERED: NOREPINEPHRINE 8 MG/250ML KIT 250 ML IV ONE (11:57)
[2020-05-23] MEDS ORDERED: DexAMETHasone SOD PHOS 10MG/1ML VIAL INJ IV ONE (12:15)
[2020-05-23] MEDS ORDERED: cefTRIAXone 1GM/50ML D5W 50 ML IV ONE (12:15)
[2020-05-23] MEDS ORDERED: AZITHROMYCIN 500MG/ 250ML 250 ML IV ONE (12:15)
[2020-05-23] MEDS: NOREPINEPHRINE 8 MG/250ML KIT 250 ML IV SCH (12:29)
[2020-05-23 13:17] LABS: Hematocrit 34.1 % (41.0-53.0); Hemoglobin 11.3 g/dL (13.5-17.5); Mean Corpuscular Hemoglobin 31.6 pg (28.0-32.0); Mean Corpuscular Volume 95.5 fL (80.0-100.0); Platelet Count (auto) 178 10^3/uL (140-450); Red Blood Cells 3.57 10^6/uL (4.5-5.90); Red Cell Distribution Width 17.3 % (11.8-14.3); White Blood Cell 28.8 10^3/uL (4.4-10.8)
[2020-05-23 13:19] LABS: Basophils % (manual) 0 (0.0-2.0); Blast Cells 0; Eosinophils % (manual) 0 (0-7); Metamyelocytes % 0; Myelocytes % 0; Promyelocytes % 0; Reactive Lymphocytes 0
[2020-05-23 13:30] LABS: Albumin 2.3 g/dL (3.4-5.0); Calcium 8.4 mg/dL (8.5-10.1); Potassium 3.8 mmol/L (3.5-5.1)
[2020-05-23 13:31] LABS: INR 1.39 (0.9-1.15); Partial Thromboplastin Time 36.2 sec (23.0-31.2)
[2020-05-23 13:34] LABS: Lactic Acid w/Reflex 3.9 mmol/L (0.4-2.0)
[2020-05-23 13:40] LABS: BUN/Creatinine Ratio 25.7; Bilirubin, Total 2.8 mg/dL (0.2-1.0); CRP High Sensitivity 5.77 mg/dL (< 0.3); Total Protein 5.3 g/dL (6.4-8.2)
[2020-05-23] MEDS ORDERED: AMIODARONE HCL 150 MG in D5W 5% 100 ML IV ONE (13:45)
[2020-05-23 13:58] LABS: Urine Bacteria FEW /hpf (None Seen); Urine Blood Negative /uL (Negative); Urine Hyaline Cast FEW /lpf (0 - 2); Urine Specific Gravity 1.022 (1.001-1.035); Urine WBC 3 /hpf (0 - 3)
[2020-05-23] MEDS: methylPREDNISolone SOD SUCC 125 MG/2 ML VL IV SCH ×2 (14:00→22:38)
[2020-05-23] MEDS ORDERED: AMIODARONE 450mg/250ml AE 250 ML IV SCH (14:00)
[2020-05-23 14:18] LABS: Band Neutrophils % (manual) 19; Lymphocytes % (manual) 2 (10.0-50.0); Monocytes % (manual) 3 (0-12)
[2020-05-23] MEDS ORDERED: NITROGLYCERIN 0.4 MG SL TAB SL PRN ×2 (16:15→16:45)
[2020-05-23] MEDS ORDERED: MORPHINE SULF INJ 2 MG/ML SYRINGE 1ML IV PRN ×3 (16:15→16:45)
[2020-05-23] MEDS ORDERED: ALBUMIN 25% 100 ML IV ONE (16:15)
[2020-05-23] MEDS ORDERED: ACETAMINOPHEN 500 MG TAB PO PRN (16:45)
[2020-05-23] MEDS ORDERED: REMDESIVIR PER PHARMACY 0 ML IV SCH (16:45)
[2020-05-23] MEDS ORDERED: ALUM & MAG HYDROX-SIMETH LIQ(MAALOX) 30 ML PO PRN (16:45)
[2020-05-23] MEDS ORDERED: ENOXAPARIN SOD 100 MG/1 ML SYRINGE SC ONE (16:45)
[2020-05-23] MEDS ORDERED: ONDANSETRON HCL 4 MG/2 ML VIAL IV PRN (16:45)
[2020-05-23] MEDS ORDERED: DOCUSATE SOD 100 MG CAP PO PRN (16:45)
[2020-05-23] MEDS ORDERED: ALBUTEROL SULF HFA 90MCG INH 200DOSE IN PRN (16:45)
[2020-05-23 17:38] LABS: Alcohol, Urine < 3.0 mg/dL (0-10); Amphetamine Screen, Urine NEGATIVE (NEGATIVE); Barbiturate Scree,Urine NEGATIVE (NEGATIVE); Benzodiazephine Screen, Urine POSITIVE (NEGATIVE); Cannabinoid Screen, Urine NEGATIVE (NEGATIVE); Cocaine Screen, Urine NEGATIVE (NEGATIVE); Opiate Scree,Urine POSITIVE (NEGATIVE); Phencyclidine Screen, Urine NEGATIVE (NEGATIVE)
[2020-05-23] MEDS ORDERED: CHOLECALCIFEROL (VITD3) 2,000 UNIT CAP/TAB PO SCH (18:24)
[2020-05-23] MEDS ORDERED: levoFLOXacin 750MG 150 ML IV SCH (18:30)
[2020-05-23] MEDS ORDERED: LACTATED RINGER'S 2,000 ML IV ONE (18:45)
[2020-05-23] MEDS: FUROSEMIDE 20 MG/2 ML VIAL IV SCH (18:51)
[2020-05-23] MEDS: ENOXAPARIN SOD 80 MG/0.8ML SYRINGE SC SCH (18:52)
[2020-05-23] MEDS: ZINC SULFATE 220mg CAP or TAB PO SCH (18:52)
[2020-05-23] MEDS: ASCORBIC ACID 1,000 MG TAB PO SCH (18:52)
[2020-05-23] MEDS: FOLIC ACID 1 MG TAB PO SCH (18:52)
[2020-05-23 18:54] LABS: Lactic Acid w/Reflex 3.5 mmol/L (0.4-2.0)
[2020-05-23] MEDS ORDERED: BUDESONIDE (INHALATION) 180 MCG IH IN SCH (22:00)
[2020-05-23] MEDS: CLINDAMYCIN 600MG IV 50 ML IV SCH (22:37)
[2020-05-23] MEDS: ATORVASTATIN 20 MG TAB PO SCH (22:38)
[2020-05-23] MEDS: FAMOTIDINE (10MG/ML) 2ML VL IV SCH (22:38)
[2020-05-23] MEDS: AMIODARONE HCL 200 MG TAB PO SCH (22:38)
[2020-05-24] MEDS ORDERED: ALBUMIN 25% 100 ML IV SCH
[2020-05-24] MEDS: CLINDAMYCIN 600MG IV 50 ML IV SCH ×2 (06:17→13:45)
[2020-05-24] MEDS: FUROSEMIDE 20 MG/2 ML VIAL IV SCH ×2 (06:17→18:00)
[2020-05-24] MEDS: methylPREDNISolone SOD SUCC 125 MG/2 ML VL IV SCH ×3 (06:18→21:38)
[2020-05-24] MEDS: ENOXAPARIN SOD 80 MG/0.8ML SYRINGE SC SCH ×2 (06:18→18:00)
[2020-05-24 07:16] LABS: Basophils # (auto) 0 10 ^3/uL (0-0.2); Eosinophils # (auto) 0 10 ^3/uL (0-0.8); Hematocrit 24.8 % (41.0-53.0); Hemoglobin 8.6 g/dL (13.5-17.5); Lymphocytes # (auto) 0.3 10 ^3/uL (0.4-5.4); Lymphocytes % (auto) 1.6 % (10.0-50.0); Mean Corpuscular Hemoglobin 32.5 pg (28.0-32.0); Mean Corpuscular Hgb Conc. 34.5 g/dL (32.0-36.0); Mean Corpuscular Volume 94.2 fL (80.0-100.0); Monocytes # (auto) 0.2 10 ^3/uL (0-1.3); Monocytes % (auto) 1.2 % (0.0-12.0); Neutrophils # (auto) 16.4 10 ^3/uL (1.6-8.6); Neutrophils % (auto) 97.2 % (37.0-80.0); Platelet Count (auto) 93 10^3/uL (140-450); Red Blood Cells 2.63 10^6/uL (4.5-5.90); White Blood Cell 16.9 10^3/uL (4.4-10.8)
[2020-05-24 07:21] LABS: Calcium 7.9 mg/dL (8.5-10.1); Potassium 3.8 mmol/L (3.5-5.1)
[2020-05-24 07:23] LABS: Albumin 2.7 g/dL (3.4-5.0); BUN/Creatinine Ratio 31.5
[2020-05-24 07:27] LABS: Total Protein 4.9 g/dL (6.4-8.2)
[2020-05-24] MEDS ORDERED: ASPirin 81 mg TAB PO SCH (10:00)
[2020-05-24] MEDS: AMIODARONE HCL 200 MG TAB PO SCH ×2 (10:36→21:38)
[2020-05-24] MEDS: CYANOCOBALAMIN 500 MCG TAB PO SCH (10:36)
[2020-05-24] MEDS: ZINC SULFATE 220mg CAP or TAB PO SCH (10:36)
[2020-05-24] MEDS: FAMOTIDINE (10MG/ML) 2ML VL IV SCH ×2 (10:36→21:37)
[2020-05-24] MEDS: FOLIC ACID 1 MG TAB PO SCH (10:37)
[2020-05-24] MEDS: ASCORBIC ACID 1,000 MG TAB PO SCH (10:37)
[2020-05-24] MEDS: METOPROLOL SUCCINATE XL 50 MG TAB PO SCH (10:37)
[2020-05-24] MEDS: HYDROcodone-ACET 5/325MG TAB PO PRN ×2 (10:49→16:50)
[2020-05-24] MEDS: NOREPINEPHRINE 8 MG/250ML KIT 250 ML IV SCH (10:52)
[2020-05-24 12:43] VITALS: BP 97/60
[2020-05-24] MEDS: DOXYCYCLINE 100MG/250ML 250 ML IV SCH (15:53)
[2020-05-24 16:00] VITALS: BP 97/70
[2020-05-24] MEDS: ALBUMIN 25% 100 ML IV SCH (16:47)
[2020-05-24] MEDS: IPRATROPIUM BROM 0.5 MG/2.5ML INH SOL NEB SCH ×2 (18:00→21:57)
[2020-05-24] MEDS: ALBUTEROL SULF 2.5 MG/0.5ML(0.5%) NEB SOLN NEB SCH ×2 (18:00→21:57)
[2020-05-24] MEDS: ATORVASTATIN 20 MG TAB PO SCH (21:38)
[2020-05-24] MEDS: LORazepam 0.5 MG TAB PO PRN (21:56)
[2020-05-24 22:00] VITALS: BP 97/65
[2020-05-25] MEDS: ALBUMIN 25% 100 ML IV SCH (00:21)
[2020-05-25] MEDS: DOXYCYCLINE 100MG/250ML 250 ML IV SCH ×2 (03:08→16:15)
[2020-05-25 05:00] VITALS: BP 106/73
[2020-05-25] MEDS: FUROSEMIDE 20 MG/2 ML VIAL IV SCH ×2 (05:31→18:58)
[2020-05-25] MEDS: ENOXAPARIN SOD 80 MG/0.8ML SYRINGE SC SCH ×2 (05:32→18:58)
[2020-05-25] MEDS: methylPREDNISolone SOD SUCC 125 MG/2 ML VL IV SCH ×3 (05:32→21:35)
[2020-05-25] MEDS: IPRATROPIUM BROM 0.5 MG/2.5ML INH SOL NEB SCH ×5 (05:55→22:21)
[2020-05-25] MEDS: ALBUTEROL SULF 2.5 MG/0.5ML(0.5%) NEB SOLN NEB SCH ×5 (05:56→22:21)
[2020-05-25 08:00] VITALS: BP 106/68
[2020-05-25] MEDS: ZINC SULFATE 220mg CAP or TAB PO SCH (10:00)
[2020-05-25] MEDS: FOLIC ACID 1 MG TAB PO SCH (10:30)
[2020-05-25] MEDS: AMIODARONE HCL 200 MG TAB PO SCH ×2 (10:30→21:35)
[2020-05-25] MEDS: CYANOCOBALAMIN 500 MCG TAB PO SCH (10:30)
[2020-05-25] MEDS: FAMOTIDINE (10MG/ML) 2ML VL IV SCH ×2 (10:31→21:35)
[2020-05-25] MEDS: METOPROLOL SUCCINATE XL 50 MG TAB PO SCH (10:32)
[2020-05-25] MEDS: ASCORBIC ACID 1,000 MG TAB PO SCH (10:40)
[2020-05-25] MEDS ORDERED: OPTISON 3ml Vial for INJ IV ONE ×2 (10:53→11:00)
[2020-05-25 11:48] LABS: Basophils # (auto) 0.2 10 ^3/uL (0-0.2); Basophils % (auto) 1.4 % (0.0-2.0); Eosinophils # (auto) 0 10 ^3/uL (0-0.8); Hematocrit 24.9 % (41.0-53.0); Hemoglobin 8.6 g/dL (13.5-17.5); Lymphocytes # (auto) 0.1 10 ^3/uL (0.4-5.4); Mean Corpuscular Hemoglobin 32.6 pg (28.0-32.0); Mean Corpuscular Hgb Conc. 34.5 g/dL (32.0-36.0); Mean Corpuscular Volume 94.5 fL (80.0-100.0); Monocytes # (auto) 0.3 10 ^3/uL (0-1.3); Monocytes % (auto) 2.4 % (0.0-12.0); Neutrophils % (auto) 95.2 % (37.0-80.0); Platelet Count (auto) 101 10^3/uL (140-450); Red Blood Cells 2.63 10^6/uL (4.5-5.90); White Blood Cell 13.7 10^3/uL (4.4-10.8)
[2020-05-25 12:04] LABS: BUN/Creatinine Ratio 31.9; Calcium 8.4 mg/dL (8.5-10.1); Potassium 3.4 mmol/L (3.5-5.1)
[2020-05-25 12:09] LABS: Lactic Acid w/Reflex 3.6 mmol/L (0.4-2.0)
[2020-05-25] MEDS: HYDROcodone-ACET 5/325MG TAB PO PRN ×2 (13:45→19:59)
[2020-05-25 16:00] VITALS: BP 113/65
[2020-05-25] MEDS: ATORVASTATIN 20 MG TAB PO SCH (21:36)
[2020-05-25] MEDS: guaiFENesin 200 MG/10 ML UD PO PRN (21:37)
[2020-05-25 21:56] VITALS: BP 102/67
[2020-05-25] MEDS: LORazepam 0.5 MG TAB PO PRN (22:57)
[2020-05-26] MEDS: guaiFENesin 200 MG/10 ML UD PO PRN ×3 (03:16→20:30)
[2020-05-26] MEDS: DOXYCYCLINE 100MG/250ML 250 ML IV SCH ×2 (03:16→16:08)
[2020-05-26] MEDS: HYDROcodone-ACET 5/325MG TAB PO PRN ×3 (03:17→22:36)
[2020-05-26 05:10] VITALS: BP 115/72
[2020-05-26] MEDS: FUROSEMIDE 20 MG/2 ML VIAL IV SCH ×2 (06:15→17:44)
[2020-05-26] MEDS: methylPREDNISolone SOD SUCC 125 MG/2 ML VL IV SCH (06:16)
[2020-05-26] MEDS: ENOXAPARIN SOD 80 MG/0.8ML SYRINGE SC SCH (06:16)
[2020-05-26 08:00] VITALS: BP 117/76
[2020-05-26] MEDS: ASCORBIC ACID 1,000 MG TAB PO SCH (11:12)
[2020-05-26] MEDS: AMIODARONE HCL 200 MG TAB PO SCH ×2 (11:32→22:35)
[2020-05-26] MEDS: FOLIC ACID 1 MG TAB PO SCH (11:35)
[2020-05-26] MEDS: FAMOTIDINE (10MG/ML) 2ML VL IV SCH ×2 (11:36→22:34)
[2020-05-26] MEDS: CYANOCOBALAMIN 500 MCG TAB PO SCH (11:36)
[2020-05-26] MEDS: METOPROLOL SUCCINATE XL 50 MG TAB PO SCH (11:37)
[2020-05-26 17:00] VITALS: BP 109/75
[2020-05-26] MEDS: ALBUTEROL SULF 2.5 MG/0.5ML(0.5%) NEB SOLN NEB SCH ×2 (18:24→21:26)
[2020-05-26] MEDS: IPRATROPIUM BROM 0.5 MG/2.5ML INH SOL NEB SCH ×2 (18:24→21:26)
[2020-05-26 22:00] VITALS: BP 122/91
[2020-05-26] MEDS: methylPREDNISolone SOD SUCC 40 MG/ML VL IV SCH (22:34)
[2020-05-26] MEDS: ATORVASTATIN 20 MG TAB PO SCH (22:35)
[2020-05-27] MEDS: guaiFENesin 200 MG/10 ML UD PO PRN ×2 (01:22→20:28)
[2020-05-27] MEDS: LORazepam 0.5 MG TAB PO PRN ×2 (01:22→23:21)
[2020-05-27] MEDS: DOXYCYCLINE 100MG/250ML 250 ML IV SCH ×2 (04:34→15:30)
[2020-05-27 05:00] VITALS: BP 115/89
[2020-05-27] MEDS: IPRATROPIUM BROM 0.5 MG/2.5ML INH SOL NEB SCH ×3 (06:10→21:15)
[2020-05-27] MEDS: ALBUTEROL SULF 2.5 MG/0.5ML(0.5%) NEB SOLN NEB SCH ×3 (06:10→21:15)
[2020-05-27] MEDS: methylPREDNISolone SOD SUCC 40 MG/ML VL IV SCH ×3 (06:19→21:48)
[2020-05-27] MEDS: FUROSEMIDE 20 MG/2 ML VIAL IV SCH ×2 (06:19→18:00)
[2020-05-27 07:28] LABS: Basophils # (auto) 0 10 ^3/uL (0-0.2); Eosinophils # (auto) 0 10 ^3/uL (0-0.8); Hematocrit 29.6 % (41.0-53.0); Hemoglobin 9.8 g/dL (13.5-17.5); Lymphocytes # (auto) 0.1 10 ^3/uL (0.4-5.4); Lymphocytes % (auto) 1.2 % (10.0-50.0); Mean Corpuscular Hemoglobin 31.6 pg (28.0-32.0); Mean Corpuscular Hgb Conc. 33.2 g/dL (32.0-36.0); Mean Corpuscular Volume 95.3 fL (80.0-100.0); Monocytes # (auto) 0.3 10 ^3/uL (0-1.3); Monocytes % (auto) 2.1 % (0.0-12.0); Neutrophils # (auto) 11.8 10 ^3/uL (1.6-8.6); Neutrophils % (auto) 96.7 % (37.0-80.0); Platelet Count (auto) 118 10^3/uL (140-450); Red Cell Distribution Width 16.4 % (11.8-14.3); White Blood Cell 12.2 10^3/uL (4.4-10.8)
[2020-05-27 07:47] LABS: Potassium 3.5 mmol/L (3.5-5.1)
[2020-05-27 07:53] LABS: BUN/Creatinine Ratio 33.3; Bilirubin, Total 1.5 mg/dL (0.2-1.0); Calcium 8.6 mg/dL (8.5-10.1); Magnesium 2.4 mg/dL (1.6-2.6); Total Protein 5.7 g/dL (6.4-8.2)
[2020-05-27 08:00] VITALS: BP 130/88
[2020-05-27] MEDS: METOPROLOL SUCCINATE XL 50 MG TAB PO SCH (09:37)
[2020-05-27] MEDS: FAMOTIDINE (10MG/ML) 2ML VL IV SCH ×2 (09:37→21:48)
[2020-05-27] MEDS: CYANOCOBALAMIN 500 MCG TAB PO SCH (09:38)
[2020-05-27] MEDS: ASCORBIC ACID 1,000 MG TAB PO SCH (09:38)
[2020-05-27] MEDS: FOLIC ACID 1 MG TAB PO SCH (09:38)
[2020-05-27] MEDS: AMIODARONE HCL 200 MG TAB PO SCH ×2 (09:38→21:47)
[2020-05-27] MEDS ORDERED: ENOXAPARIN SOD 40 MG/0.4 ML SYRINGE SC SCH (10:00)
[2020-05-27] MEDS: ACETYLCYSTEINE 10 %(100MG/ML) SOL 4ML NEB SCH ×2 (11:30→21:15)
[2020-05-27 16:00] VITALS: BP 123/85
[2020-05-27] MEDS ORDERED: RIVAROXABAN 15 MG TAB PO SCH (18:00)
[2020-05-27] MEDS: HYDROcodone-ACET 5/325MG TAB PO PRN (20:27)
[2020-05-27] MEDS: ATORVASTATIN 20 MG TAB PO SCH (21:47)
[2020-05-27 22:00] VITALS: BP 115/64
[2020-05-27] MEDS ORDERED: ENOXAPARIN SOD 80 MG/0.8ML SYRINGE SC SCH (22:00)
[2020-05-28] MEDS: DOXYCYCLINE 100MG/250ML 250 ML IV SCH ×2 (03:43→18:08)
[2020-05-28 05:37] VITALS: BP 119/55
[2020-05-28] MEDS: FUROSEMIDE 20 MG/2 ML VIAL IV SCH ×2 (05:50→18:08)
[2020-05-28] MEDS: methylPREDNISolone SOD SUCC 40 MG/ML VL IV SCH ×3 (05:50→21:34)
[2020-05-28] MEDS: IPRATROPIUM BROM 0.5 MG/2.5ML INH SOL NEB SCH ×5 (05:55→22:00)
[2020-05-28] MEDS: ALBUTEROL SULF 2.5 MG/0.5ML(0.5%) NEB SOLN NEB SCH ×5 (05:55→22:00)
[2020-05-28] MEDS: ACETYLCYSTEINE 10 %(100MG/ML) SOL 4ML NEB SCH ×3 (05:55→22:00)
[2020-05-28] MEDS: HYDROcodone-ACET 5/325MG TAB PO PRN ×3 (05:56→23:47)
[2020-05-28 08:00] VITALS: BP 129/87
[2020-05-28 08:26] LABS: Basophils # (auto) 0 10 ^3/uL (0-0.2); Basophils % (auto) 0.1 % (0.0-2.0); Eosinophils # (auto) 0 10 ^3/uL (0-0.8); Hematocrit 29.5 % (41.0-53.0); Hemoglobin 10.1 g/dL (13.5-17.5); Lymphocytes # (auto) 0.2 10 ^3/uL (0.4-5.4); Mean Corpuscular Hemoglobin 32.3 pg (28.0-32.0); Mean Corpuscular Hgb Conc. 34.3 g/dL (32.0-36.0); Mean Corpuscular Volume 94.1 fL (80.0-100.0); Monocytes # (auto) 0.3 10 ^3/uL (0-1.3); Monocytes % (auto) 2.3 % (0.0-12.0); Neutrophils # (auto) 14.6 10 ^3/uL (1.6-8.6); Neutrophils % (auto) 96.6 % (37.0-80.0); Platelet Count (auto) 122 10^3/uL (140-450); Red Blood Cells 3.13 10^6/uL (4.5-5.90); Red Cell Distribution Width 16.6 % (11.8-14.3); White Blood Cell 15.2 10^3/uL (4.4-10.8)
[2020-05-28 08:40] LABS: BUN/Creatinine Ratio 40.9; Magnesium 2.2 mg/dL (1.6-2.6); Potassium 3.2 mmol/L (3.5-5.1)
[2020-05-28] MEDS: FOLIC ACID 1 MG TAB PO SCH (09:34)
[2020-05-28] MEDS: AMIODARONE HCL 200 MG TAB PO SCH ×2 (09:34→21:35)
[2020-05-28] MEDS: FAMOTIDINE (10MG/ML) 2ML VL IV SCH ×2 (09:34→21:34)
[2020-05-28] MEDS: ASCORBIC ACID 1,000 MG TAB PO SCH (09:35)
[2020-05-28] MEDS: METOPROLOL SUCCINATE XL 50 MG TAB PO SCH (09:35)
[2020-05-28] MEDS: CYANOCOBALAMIN 500 MCG TAB PO SCH (09:35)
[2020-05-28] MEDS: POTASSIUM CHL 20MEQ/100ML 100 ML IV SCH ×2 (14:14→15:30)
[2020-05-28 16:00] VITALS: BP 116/73
[2020-05-28] MEDS: RIVAROXABAN 20 MG TAB PO SCH (18:08)
[2020-05-28] MEDS: LORazepam 0.5 MG TAB PO PRN (21:34)
[2020-05-28] MEDS: ATORVASTATIN 20 MG TAB PO SCH (21:35)
[2020-05-28 22:00] VITALS: BP 101/69
[2020-05-29] MEDS: DOXYCYCLINE 100MG/250ML 250 ML IV SCH ×2 (03:49→15:30)
[2020-05-29] MEDS: HYDROcodone-ACET 5/325MG TAB PO PRN ×3 (03:50→12:54)
[2020-05-29 05:00] VITALS: BP 100/69
[2020-05-29] MEDS: FUROSEMIDE 20 MG/2 ML VIAL IV SCH ×2 (05:39→18:24)
[2020-05-29] MEDS: methylPREDNISolone SOD SUCC 40 MG/ML VL IV SCH ×3 (05:41→23:58)
[2020-05-29] MEDS: ALBUTEROL SULF 2.5 MG/0.5ML(0.5%) NEB SOLN NEB SCH ×5 (06:18→21:20)
[2020-05-29] MEDS: IPRATROPIUM BROM 0.5 MG/2.5ML INH SOL NEB SCH ×5 (06:18→21:20)
[2020-05-29] MEDS: ACETYLCYSTEINE 10 %(100MG/ML) SOL 4ML NEB SCH ×3 (06:18→22:00)
[2020-05-29] MEDS: AMIODARONE HCL 200 MG TAB PO SCH ×2 (08:42→23:59)
[2020-05-29] MEDS: METOPROLOL SUCCINATE XL 50 MG TAB PO SCH (08:42)
[2020-05-29] MEDS: FAMOTIDINE (10MG/ML) 2ML VL IV SCH ×2 (08:42→23:58)
[2020-05-29] MEDS: FOLIC ACID 1 MG TAB PO SCH (08:42)
[2020-05-29] MEDS: ASCORBIC ACID 1,000 MG TAB PO SCH (08:44)
[2020-05-29] MEDS: CYANOCOBALAMIN 500 MCG TAB PO SCH (08:44)
[2020-05-29 09:48] LABS: Basophils # (auto) 0.1 10 ^3/uL (0-0.2); Basophils % (auto) 0.7 % (0.0-2.0); Eosinophils # (auto) 0 10 ^3/uL (0-0.8); Hemoglobin 9.9 g/dL (13.5-17.5); Lymphocytes # (auto) 0.1 10 ^3/uL (0.4-5.4); Lymphocytes % (auto) 0.8 % (10.0-50.0); Mean Corpuscular Hemoglobin 32.1 pg (28.0-32.0); Mean Corpuscular Hgb Conc. 34.2 g/dL (32.0-36.0); Mean Corpuscular Volume 93.9 fL (80.0-100.0); Monocytes # (auto) 0.3 10 ^3/uL (0-1.3); Monocytes % (auto) 1.7 % (0.0-12.0); Neutrophils # (auto) 16.4 10 ^3/uL (1.6-8.6); Neutrophils % (auto) 96.8 % (37.0-80.0); Platelet Count (auto) 128 10^3/uL (140-450); Red Blood Cells 3.09 10^6/uL (4.5-5.90); Red Cell Distribution Width 16.2 % (11.8-14.3); White Blood Cell 16.9 10^3/uL (4.4-10.8)
[2020-05-29 10:16] LABS: Calcium 8.2 mg/dL (8.5-10.1); Magnesium 2.2 mg/dL (1.6-2.6); Potassium 3.6 mmol/L (3.5-5.1)
[2020-05-29 16:00] VITALS: BP 138/87
[2020-05-29] MEDS: RIVAROXABAN 20 MG TAB PO SCH (18:24)
[2020-05-29 20:00] VITALS: BP 126/76
[2020-05-29] MEDS: ATORVASTATIN 20 MG TAB PO SCH (23:59)
[2020-05-30] MEDS: DOXYCYCLINE 100MG/250ML 250 ML IV SCH ×2 (05:17→15:30)
[2020-05-30] MEDS: FUROSEMIDE 20 MG/2 ML VIAL IV SCH ×2 (06:38→18:11)
[2020-05-30] MEDS: methylPREDNISolone SOD SUCC 40 MG/ML VL IV SCH ×2 (06:39→14:00)
[2020-05-30 06:56] LABS: Basophils # (auto) 0 10 ^3/uL (0-0.2); Basophils % (auto) 0.1 % (0.0-2.0); Eosinophils # (auto) 0 10 ^3/uL (0-0.8); Hematocrit 25.9 % (41.0-53.0); Hemoglobin 9.1 g/dL (13.5-17.5); Lymphocytes # (auto) 0.1 10 ^3/uL (0.4-5.4); Lymphocytes % (auto) 0.7 % (10.0-50.0); Mean Corpuscular Hemoglobin 32.8 pg (28.0-32.0); Mean Corpuscular Hgb Conc. 35.4 g/dL (32.0-36.0); Mean Corpuscular Volume 92.8 fL (80.0-100.0); Monocytes # (auto) 0.2 10 ^3/uL (0-1.3); Monocytes % (auto) 1.8 % (0.0-12.0); Neutrophils # (auto) 12.7 10 ^3/uL (1.6-8.6); Neutrophils % (auto) 97.4 % (37.0-80.0); Platelet Count (auto) 109 10^3/uL (140-450); Red Blood Cells 2.79 10^6/uL (4.5-5.90); Red Cell Distribution Width 16.3 % (11.8-14.3)
[2020-05-30 07:07] LABS: Potassium 3.4 mmol/L (3.5-5.1)
[2020-05-30 07:13] LABS: BUN/Creatinine Ratio 44.3; Calcium 7.8 mg/dL (8.5-10.1); Magnesium 2.2 mg/dL (1.6-2.6)
[2020-05-30 08:00] VITALS: BP 119/71
[2020-05-30] MEDS: ASCORBIC ACID 1,000 MG TAB PO SCH (09:32)
[2020-05-30] MEDS: FAMOTIDINE (10MG/ML) 2ML VL IV SCH (10:05)
[2020-05-30] MEDS: AMIODARONE HCL 200 MG TAB PO SCH (10:08)
[2020-05-30] MEDS: FOLIC ACID 1 MG TAB PO SCH (10:08)
[2020-05-30] MEDS: CYANOCOBALAMIN 500 MCG TAB PO SCH (10:09)
[2020-05-30] MEDS: METOPROLOL SUCCINATE XL 50 MG TAB PO SCH (10:09)
[2020-05-30] MEDS ORDERED: POTASSIUM CHL 20 Meq TABLET PO ONE (10:45)
[2020-05-30] MEDS: guaiFENesin 200 MG/10 ML UD PO PRN (10:54)
[2020-05-30] MEDS ORDERED: POTASSIUM EFFERVESENT TAB 25 MEQ PO ONE (12:00)
[2020-05-30 16:00] VITALS: BP 99/57
[2020-05-30] MEDS: RIVAROXABAN 20 MG TAB PO SCH (18:11)
[2020-05-30 22:00] VITALS: BP 105/71
[2020-05-30] MEDS: ACETYLCYSTEINE 10 %(100MG/ML) SOL 4ML NEB SCH (22:00)
[2020-05-30] MEDS: IPRATROPIUM BROM 0.5 MG/2.5ML INH SOL NEB SCH (22:00)
[2020-05-30] MEDS: ALBUTEROL SULF 2.5 MG/0.5ML(0.5%) NEB SOLN NEB SCH (22:00)
[2020-05-30] MEDS: HYDROcodone-ACET 5/325MG TAB PO PRN (22:30)
[2020-05-31] MEDS: FAMOTIDINE (10MG/ML) 2ML VL IV SCH ×2 (00:15→10:00)
[2020-05-31] MEDS: methylPREDNISolone SOD SUCC 40 MG/ML VL IV SCH ×3 (00:16→13:44)
[2020-05-31] MEDS: ATORVASTATIN 20 MG TAB PO SCH (00:17)
[2020-05-31] MEDS: AMIODARONE HCL 200 MG TAB PO SCH ×2 (00:17→10:00)
[2020-05-31] MEDS: DOXYCYCLINE 100MG/250ML 250 ML IV SCH (03:27)
[2020-05-31 05:00] VITALS: BP 115/60
[2020-05-31] MEDS: FUROSEMIDE 20 MG/2 ML VIAL IV SCH (05:45)
[2020-05-31] MEDS: IPRATROPIUM BROM 0.5 MG/2.5ML INH SOL NEB SCH ×3 (06:00→14:00)
[2020-05-31] MEDS: ALBUTEROL SULF 2.5 MG/0.5ML(0.5%) NEB SOLN NEB SCH ×3 (06:00→14:00)
[2020-05-31] MEDS: ACETYLCYSTEINE 10 %(100MG/ML) SOL 4ML NEB SCH ×2 (06:00→14:00)
[2020-05-31 06:13] LABS: Basophils # (auto) 0 10 ^3/uL (0-0.2); Basophils % (auto) 0.1 % (0.0-2.0); Eosinophils # (auto) 0 10 ^3/uL (0-0.8); Hematocrit 28.7 % (41.0-53.0); Hemoglobin 10.1 g/dL (13.5-17.5); Lymphocytes # (auto) 0.1 10 ^3/uL (0.4-5.4); Lymphocytes % (auto) 0.6 % (10.0-50.0); Mean Corpuscular Hgb Conc. 35.1 g/dL (32.0-36.0); Mean Corpuscular Volume 93.9 fL (80.0-100.0); Monocytes # (auto) 0.2 10 ^3/uL (0-1.3); Monocytes % (auto) 0.9 % (0.0-12.0); Neutrophils # (auto) 16.6 10 ^3/uL (1.6-8.6); Neutrophils % (auto) 98.4 % (37.0-80.0); Platelet Count (auto) 110 10^3/uL (140-450); Red Blood Cells 3.06 10^6/uL (4.5-5.90); Red Cell Distribution Width 16.3 % (11.8-14.3); White Blood Cell 16.9 10^3/uL (4.4-10.8)
[2020-05-31 06:51] LABS: Magnesium 2.3 mg/dL (1.6-2.6)
[2020-05-31 06:53] LABS: BUN/Creatinine Ratio 44.6
[2020-05-31 06:58] LABS: Potassium 2.8 mmol/L (3.5-5.1)
[2020-05-31] MEDS: HYDROcodone-ACET 5/325MG TAB PO PRN ×2 (07:06→07:09)
[2020-05-31] MEDS ORDERED: POTASSIUM CHL 20 Meq TABLET PO ONE (07:45)
[2020-05-31] MEDS ORDERED: SOD CHL 0.9%/ KCL 40MEQ 1,000 ML IV SCH (07:45)
[2020-05-31 08:00] VITALS: BP 127/70
[2020-05-31] MEDS: POTASSIUM CHL 20MEQ/100ML 100 ML IV SCH ×2 (09:20→10:58)
[2020-05-31] MEDS: ASCORBIC ACID 1,000 MG TAB PO SCH (09:25)
[2020-05-31] MEDS: METOPROLOL SUCCINATE XL 50 MG TAB PO SCH (10:00)
[2020-05-31] MEDS: CYANOCOBALAMIN 500 MCG TAB PO SCH (10:00)
[2020-05-31] MEDS: FOLIC ACID 1 MG TAB PO SCH (10:00)
[2020-05-31] MEDS: POTASSIUM EFFERVESENT TAB 25 MEQ PO ONE (13:00)
[2020-05-31] MEDS ORDERED: POTASSIUM CHL 20MEQ/100ML 100 ML IV ONE (14:15)
[2020-05-31 15:20] VITALS: BP 127/70
[2020-05-31 16:00] VITALS: BP 110/71
== END 2020-05-31 17:00 | disposition hospice, home (50) | DRG 291 ==
LOC: EDBD 11:51 → ER 11:51 → EDUNIT# 11:51 → EDSEX 11:51 → TELE 11:52 → TELE-CENTR 05-24 12:42 → WEST WING 05-27 08:28
PROVIDERS: ADMIT Hospitalist; ATTEND Internal Medicine
PROC: 06HY33Z Insertion of Infusion Device into Lower Vein, Percutaneous Approach (ICD-10-PCS; principal; 2020-05-23)
DX: I11.0 Hypertensive heart disease with heart failure (principal); J18.9 Pneumonia, unspecified organism; E43 Unspecified severe protein-calorie malnutrition; G93.41 Metabolic encephalopathy; J96.21 Acute and chronic respiratory failure with hypoxia; J44.0 Chronic obstructive pulmonary disease with (acute) lower respiratory infection; I48.20 Chronic atrial fibrillation, unspecified; J98.11 Atelectasis; D68.59 Other primary thrombophilia; G93.1 Anoxic brain damage, not elsewhere classified; J44.1 Chronic obstructive pulmonary disease with (acute) exacerbation; I50.43 Acute on chronic combined systolic (congestive) and diastolic (congestive) heart failure; I42.9 Cardiomyopathy, unspecified; Z51.5 Encounter for palliative care; Z20.822 Contact with and (suspected) exposure to COVID-19; K21.9 Gastro-esophageal reflux disease without esophagitis; K29.70 Gastritis, unspecified, without bleeding; D64.9 Anemia, unspecified; Z86.16 Personal history of COVID-19; M19.90 Unspecified osteoarthritis, unspecified site; I25.10 Atherosclerotic heart disease of native coronary artery without angina pectoris; E78.5 Hyperlipidemia, unspecified; Z99.81 Dependence on supplemental oxygen; Z88.6 Allergy status to analgesic agent; Z88.8 Allergy status to other drugs, medicaments and biological substances; Z68.21 Body mass index [BMI] 21.0-21.9, adult; I25.2 Old myocardial infarction; Z86.711 Personal history of pulmonary embolism; Z90.49 Acquired absence of other specified parts of digestive tract; Z90.89 Acquired absence of other organs; Z79.899 Other long term (current) drug therapy; Z79.51 Long term (current) use of inhaled steroids
CPT/HCPCS: 36415; 36556; 36600; 70450; 71045; 80048; 80053; 80061; 80307; 81001; 82306; 82728; 82805; 83036; 83605; 83615; 83735; 84443; 84484; 85007; 85025; 85027; 85379; 85610; 85730; 86141; 86850; 86900; 86901; 87040; 87081; 87086; 87088; 87426; 92610; 93306; 94640; 96365; 96367; 96375; 97110; 97163; 97530; 99291; G0378; J0696; J1100; J1956; J3480; J3490; J7060; P9047; Q9956